=== PATIENT | male | born 1975 | race Caucasian/White ===

== ENCOUNTER 2017-04-29 18:35 | Inpatient (IN) | payer OTHER ==
[~2017-04-29] VITALS: Ht 190.5 cm; Wt 69.6 kg
[~2017-04-29 18:35] MED LIST: DIPH1TAB36 PO
[2017-04-29 18:49] VITALS: BP 167/97; PULSE 81; RESP 16; TEMP 98.3; O2SAT 100
[2017-04-29] MEDS ORDERED: SODIUM CHLOR 0.9% 1000 ML INJ 1,000 ML IV SCH (19:36)
[2017-04-29] MEDS ORDERED: [UNRECOGNIZED DRUG - CODE] PO (19:38)
--- NOTE | 2017-04-29 19:40 | PD ---
HPI Chief Complaint: Complaint Time Seen by Provider: 19:31 Travel History International Travel<30 days: No Contact w/Intl Traveler<30days: No Traveled to known affect area: No History of Present Illness HPI Patient is a 42-year-old male, who had kidney stones 15 years ago, who comes in complaining of right-sided pain. He says he started having some pain last night , but it got worse today. He also had 2 episodes of hematuria today. He says the pain has gotten so bad that he feels like he needs to vomit. He has not had fever or chills. He has not taken anything at home for the pain. PFSH Past Medical History Anxiety: Yes Depression: Yes Diminished Hearing: No Diverticulitis: Yes Gastrointestinal Disorders: Yes (COLITIS) Musculoskeletal: Yes (BACK PROBS,KNEE PROBS- HX OF RIGHT FEMUR FRACTURE) Immunizations Current: No Social History Alcohol Use: Yes (TEQUILA- 4 SHOTS A WEEK) Tobacco Use: Yes (E CIGS,) Substance Use: No Allergies-Medications (Allergen,Severity, Reaction): Coded Allergies: Penicillin (Verified Allergy, Mild, 04/29/17) Reported Meds & Prescriptions Reported Meds & Active Scripts Active Reported Pain Reliever Pm 500-25 mg (Diphenhydramine-Acetaminophen) 1 Tab Tab 2 Tab PO HS Review of Systems Except as stated in HPI: all other systems reviewed are Neg General / Constitutional: No: Fever, Chills HENT: No: Headaches, Lightheadedness Cardiovascular: No: Chest Pain or Discomfort Respiratory: No: Shortness of Breath Gastrointestinal: Positive: Nausea, Abdominal Pain, No: Vomiting Genitourinary: Positive: Hematuria, Flank Pain Skin: No Rash, No Change in Pigmentation Neurologic: No: Weakness, Dizziness Physical Exam Narrative GENERAL: Awake and alert, in no acute distress. SKIN: Focused skin assessment warm/dry. HEAD: Atraumatic. Normocephalic. EYES: Pupils equal and round. No scleral icterus. ENT: Mucous membranes pink and moist. NECK: Trachea midline. No JVD. CARDIOVASCULAR: Regular rate and rhythm. No murmur appreciated. RESPIRATORY: No accessory muscle use. Clear to auscultation. Breath sounds equal bilaterally. GASTROINTESTINAL: Abdomen soft, nondistended. Right CVA tenderness. Tender to palpation of the right upper quadrant. No rebound or guarding. MUSCULOSKELETAL: No obvious deformities. No clubbing. No cyanosis. No edema. NEUROLOGICAL: Awake and alert. No obvious cranial nerve deficits. Motor grossly within normal limits. Normal speech. PSYCHIATRIC: Appropriate mood and affect; insight and judgment normal. Data Data Last Documented VS Vital Signs Date Time Temp Pulse Resp B/P Pulse Ox O2 Delivery O2 Flow Rate FiO2 04/29/17 21:13 18 04/29/17 18:49 98.3 81 167/97 100 Orders Complete Blood Count With Diff (04/29/17 19:36) Comprehensive Metabolic Panel (04/29/17 19:36) Prothrombin Time / Inr (Pt) (04/29/17 19:36) Act Partial Throm Time (Ptt) (04/29/17 19:36) Urinalysis - C+S If Indicated (04/29/17 19:36) Ua Includes Microscopic (04/29/17 19:36) Ct Abd/Pel W/O Iv Contrast (04/29/17 19:36) Iv Access Insert/Monitor (04/29/17 19:36) Ecg Monitoring (04/29/17 19:36) Oximetry (04/29/17 19:36) Morphine Inj (Morphine Inj) (04/29/17 19:45) Ondansetron Inj (Zofran Inj) (04/29/17 19:45) Sodium Chlor 0.9% 1000 Ml Inj (Ns 1000 M (04/29/17 19:36) Sodium Chloride 0.9% Flush (Ns Flush) (04/29/17 19:45) Ketorolac Inj (Toradol Inj) (04/29/17 19:45) Ondansetron Inj (Zofran Inj) (04/29/17 21:00) Hydromorphone Pf Inj (Dilaudid Pf Inj) (04/29/17 21:30) Npo After Midnight W/ Po Meds (04/30/17 Breakfast) Consent (04/29/17 21:20) Cytology Request For Service (04/29/17 21:24) Labs Laboratory Tests Test 04/29/17 19:45 White Blood Count 7.3 TH/MM3 Red Blood Count 4.76 MIL/MM3 Hemoglobin 14.9 GM/DL Hematocrit 43.7 % Mean Corpuscular Volume 91.7 FL Mean Corpuscular Hemoglobin 31.3 PG Mean Corpuscular Hemoglobin 34.1 % Concent Red Cell Distribution Width 11.8 % Platelet Count 174 TH/MM3 Mean Platelet Volume 7.8 FL Neutrophils (%) (Auto) 68.2 % Lymphocytes (%) (Auto) 23.8 % Monocytes (%) (Auto) 5.8 % Eosinophils (%) (Auto) 0.9 % Basophils (%) (Auto) 1.3 % Neutrophils # (Auto) 5.0 TH/MM3 Lymphocytes # (Auto) 1.7 TH/MM3 Monocytes # (Auto) 0.4 TH/MM3 Eosinophils # (Auto) 0.1 TH/MM3 Basophils # (Auto) 0.1 TH/MM3 CBC Comment DIFF FINAL Differential Comment Prothrombin Time 11.6 SEC Prothromb Time International 1.0 RATIO Ratio Activated Partial 26.1 SEC Thromboplast Time Sodium Level 143 MEQ/L Potassium Level 3.4 MEQ/L Chloride Level 107 MEQ/L Carbon Dioxide Level 28.8 MEQ/L Anion Gap 7 MEQ/L Blood Urea Nitrogen 21 MG/DL Creatinine 0.83 MG/DL Estimat Glomerular Filtration 103 ML/MIN Rate Random Glucose 77 MG/DL Calcium Level 9.0 MG/DL Total Bilirubin 0.4 MG/DL Aspartate Amino Transf 23 U/L (AST/SGOT) Alanine Aminotransferase 32 U/L (ALT/SGPT) Alkaline Phosphatase 50 U/L Total Protein 7.0 GM/DL Albumin 4.3 GM/DL [facility] Medical Decision Making Medical Screen Exam Complete: Yes Emergency Medical Condition: Yes Medical Record Reviewed: Yes Differential Diagnosis UTI versus renal stone versus pyelonephritis versus cholecystitis Narrative Course Patient is a 42-year-old male comes in complaining of right flank pain and hematuria. Exam shows right CVA tenderness and right upper quadrant pain. IV established, labs sent. Patient given IV fluids, Toradol, morphine, Zofran. CT shows a 1.8 cm obstructing area in the right ureter. It is unclear if this is a stone vs clot. I spoke with Dr. Torrez of urology who would like to place a ureteral stent tomorrow, requests patient be NPO after midnight. Patient continues to vomit and have pain. Given Dilaudid and additional Zofran. He will be admitted to medicine. Diagnosis Primary Impression: Obstructive uropathy Additional Impression: Nausea & vomiting Qualified Code: R11.2 - Non-intractable vomiting with nausea, unspecified vomiting type Admitting Information Admitting Physician Requests: Admit Loraine Woods MD Apr 29, 2017 19:39
[2017-04-29] MEDS ORDERED: ONDANSETRON HCL 4 MG/2 ML VIAL IVP ONE (19:45)
[2017-04-29] MEDS ORDERED: KETOROLAC TROMETHAMINE 30 MG/ML (IVP) VIAL IVP ONE (19:45)
[2017-04-29] MEDS ORDERED: SODIUM CHLORIDE 0.9% FLUSH 10 ML FLUSH IV FLUSH PRN ×2 (19:45→22:15)
[2017-04-29] MEDS ORDERED: MORPHINE SULFATE 4 MG/ML INJ IV PUSH ONE (19:45)
[2017-04-29 19:56] LABS: BASOPHIL # 0.1 TH/MM3 (0-0.2); BASOPHIL % 1.3 % (0.0-2.0); EOSINOPHIL # 0.1 TH/MM3 (0-0.4); EOSINOPHIL % 0.9 % (0.0-4.0); HEMATOCRIT 43.7 % (39.0-51.0); HEMO FLAGS DIFF FINAL; LYMPH % 23.8 % (9.0-44.0); LYMPHOCYTE # 1.7 TH/MM3 (1.0-4.8); MEAN CELL VOLUME 91.7 FL (80.0-100.0); MEAN CORPUSCULAR HEMOGLOBIN 31.3 PG (27.0-34.0); MEAN CORPUSCULAR HGB CONC 34.1 % (32.0-36.0); MONO % 5.8 % (0.0-8.0); NEUT % 68.2 % (16.0-70.0); PLATELET COUNT 174 TH/MM3 (150-450); RED BLOOD COUNT 4.76 MIL/MM3 (4.50-5.90); RED CELL DISTRIBUTION WIDTH 11.8 % (11.6-17.2); WHITE BLOOD COUNT 7.3 TH/MM3 (4.0-11.0)
[2017-04-29 20:05] VITALS: BP 184/106; PULSE 60; RESP 18; O2SAT 99
[2017-04-29 20:05] LABS: CHLORIDE 107 MEQ/L (98-107); POTASSIUM 3.4 MEQ/L (3.5-5.1); SODIUM (NA) 143 MEQ/L (136-145)
[2017-04-29 20:09] LABS: ANION GAP 7 MEQ/L (5-15); BICARBONATE 28.8 MEQ/L (21.0-32.0); BLOOD UREA NITROGEN 21 MG/DL (7-18)
[2017-04-29 20:11] LABS: APTT (PATIENT) 26.1 SEC (24.3-30.1); PROTHROMBIN TIME - PATIENT 11.6 SEC (9.8-11.6)
[2017-04-29 20:12] LABS: ALT (GPT) 32 U/L (12-78); AST (GOT) 23 U/L (15-37); GLOMERULAR FILTRATION RATE 103 ML/MIN (>89)
[2017-04-29 20:14] LABS: TOTAL BILIRUBIN ADULT 0.4 MG/DL (0.2-1.0)
[2017-04-29 20:15] LABS: ALKALINE PHOSPHATASE 50 U/L (45-117)
[2017-04-29] MEDS ORDERED: ONDANSETRON HCL 4 MG/2 ML VIAL IV PUSH ONE (21:00)
--- NOTE | 2017-04-29 21:02 | RADRPT ---
EXAM DATE/TIME: 04/29/2017 20:16 [place] COMPARISON: CT ABDOMEN & PELVIS W CONTRAST, April 04, 2016, 19:39. INDICATIONS : Right flank pain for 1 week. ORAL CONTRAST: No oral contrast ingested. RADIATION DOSE: 9.51 CTDIvol (mGy) MEDICAL HISTORY : Diverticulitis. colitis, renal calculi SURGICAL HISTORY : None. ENCOUNTER: Initial ACUITY: 1 week PAIN SCALE: 10/10 LOCATION: Right flank TECHNIQUE: Volumetric scanning of the abdomen and pelvis was performed. Using automated exposure control and ad justment of the mA and/or kV according to patient size, radiation dose was kept as low as reasonably achievable to obtain optimal diagnostic quality images. DICOM format image data is available electro nically for review and comparison. FINDINGS: LOWER LUNGS: The visualized lower lungs are clear. LIVER: Homogeneous density without lesion for noncontrast technique. There is no dilation of the biliary tr ee. No calcified gallstones. SPLEEN: Normal size without lesion. PANCREAS: Within normal limits. KIDNEYS: On the right side, there is mild dilation of the collecting system extrarenal pelvis. There is a 4 m m nonobstructing stone in the upper pole. In the region of the extrarenal pelvis and proximal ureter , there is a amorphous area of hyperdensity which appears to be partially calcified and courses into the proximal ureter and probably causes obstruction present measures up to 1.8 cm in dimension. Mean CT density is approximately 80 Hounsfield units. No calcifications along the distal right ureter. On the left side, no hydronephrosis or calcified stones. ADRENAL GLANDS: Within normal limits. VASCULAR: There is no aortic aneurysm. Some arteriosclerotic calcification in the mid abdominal aorta. BOWEL/MESENTERY: No dilated loops of small or large bowel. ABDOMINAL WALL: Within normal limits. RETROPERITONEUM: There is no lymphadenopathy. BLADDER: No wall thickening or mass. REPRODUCTIVE: Within normal limits. INGUINAL: There is no lymphadenopathy or hernia. MUSCULOSKELETAL: Within normal limits for patient age. CONCLUSION: 1. There is mild right-sided hydronephrosis and a elongated hyperdense, possibly faintly calcified, a bnormality at the extrarenal pelvis extending into the proximal ureter, measuring up to 1.8 cm in dim ension, and causing the obstruction. This could represent a faintly calcified elongated stone or blo od products. Recommend followup CTs to resolution. 2. There is also a nonobstructing calcified 4 mm stone upper pole right kidney. Shan Reed MD on April 29, 2017 at 20:49 Board Certified Radiologist. This report was verified electronically.
[2017-04-29] MEDS ORDERED: HYDROmorphone HCL PF 1 MG/ML VIAL IV PUSH ONE (21:30)
[2017-04-29 21:40] VITALS: BP 161/95; PULSE 72; RESP 16; O2SAT 99
[2017-04-29 22:07] LABS: BLOOD, URINE LARGE (NEG); GLUCOSE,URINE NEG (NEG); KETONE, URINE 40 mg/dL (NEG); NITRITE,URINE NEG (NEG); PH, URINE 6.5 (5.0-8.5)
[2017-04-29] MEDS ORDERED: NALOXONE HCL 0.4 MG/ML AMP IV PRN (22:15)
[2017-04-29 22:30] LABS: MUCUS URINE MANY /lpf (OCC); URINE COLOR BROWN (YELLW/STRAW)
[2017-04-29 22:31] LABS: COMMENT (UR) CULTURE INDICATED; CULTURE IF INDICATED CULTURE INDICATED; RBC, URINE INNUM /hpf (0-3); SQUAMOUS EPITHELIAL CELL URINE 0-5 /hpf (0-5)
[2017-04-29] MEDS: SODIUM CHLOR 0.9% 1000 ML INJ 1,000 ML IV SCH (22:45)
[2017-04-29] MEDS: CIPROFLOXACIN 400 MG PREMIX 200 ML IV SCH (22:46)
[2017-04-29] MEDS: ONDANSETRON HCL 4 MG/2 ML VIAL IVP PRN (23:21)
[2017-04-29] MEDS: HYDROmorphone HCL PF 1 MG/ML VIAL IV PUSH PRN (23:27)
[2017-04-30] VITALS (7 sets, daily range): BP systolic 148–156; BP diastolic 89–100; PULSE 56–71; RESP 16–20; TEMP 96.1–97.6; O2SAT 98–100
[2017-04-30] MEDS: POTASSIUM CHLOR 20 MEQ PREMIX 100 ML IV SCH ×2 (00:23→03:17)
[2017-04-30] MEDS: HYDROmorphone HCL PF 1 MG/ML VIAL IV PUSH PRN ×5 (02:20→22:03)
[2017-04-30] MEDS: ONDANSETRON HCL 4 MG/2 ML VIAL IVP PRN ×2 (06:17→09:19)
[2017-04-30 08:35] LABS: AUTOMATED NEUTROPHIL # 8.5 TH/MM3 (1.8-7.7); BASOPHIL % 0.2 % (0.0-2.0); EOSINOPHIL # 0.1 TH/MM3 (0-0.4); EOSINOPHIL % 0.7 % (0.0-4.0); HEMO FLAGS DIFF FINAL; LYMPH % 8.4 % (9.0-44.0); LYMPHOCYTE # 0.9 TH/MM3 (1.0-4.8); MEAN CELL VOLUME 91.4 FL (80.0-100.0); MEAN CORPUSCULAR HEMOGLOBIN 31.2 PG (27.0-34.0); MEAN CORPUSCULAR HGB CONC 34.1 % (32.0-36.0); NEUT % 84.7 % (16.0-70.0); PLATELET COUNT 147 TH/MM3 (150-450); RED BLOOD COUNT 4.49 MIL/MM3 (4.50-5.90); RED CELL DISTRIBUTION WIDTH 11.7 % (11.6-17.2); WHITE BLOOD COUNT 10.1 TH/MM3 (4.0-11.0)
[2017-04-30] MEDS ORDERED: HYDROmorphone HCL PF 1 MG/ML VIAL IV PUSH ONE (09:15)
[2017-04-30] MEDS: CIPROFLOXACIN 400 MG PREMIX 200 ML IV SCH ×2 (09:19→22:57)
[2017-04-30] MEDS: SODIUM CHLOR 0.9% 1000 ML INJ 1,000 ML IV SCH ×2 (09:25→18:11)
--- NOTE | 2017-04-30 09:42 | HHI.HP ---
HPI Service [facility] Primary Care Physician No Primary Care Physician Admission Diagnosis obstructive uropathy Diagnoses: Chief Complaint: Pain Travel History International Travel<30 Days: No Contact w/Intl Traveler <30 Da: No Traveled to Known Affected Are: No History of Present Illness The patient is a 42-year-old male with past medical history of kidney stones who is presenting to the hospital with severe right-sided flank pain. The patient said that yesterday he passed blood clots in his urine. He had some discomfort and soreness throughout the day and at work he had some bouts of severe pain at the right flank. He said the bouts of pain would come and go so he was able to stay at work for all 10 hours. His pain level would go to a 10/ 10 in severity at its worst. He continued to notice blood in his urine. He said the pain got so bad that he has been vomiting because of it. He says he last had an episode of kidney stones when he was in his 20s. He has had a few bouts of kidney stones in his life. Review of Systems Except as stated in HPI: all other systems reviewed are Neg Past Family Social History Past Medical History Nephrolithiasis Past Surgical History Right femur fracture Artificial disc in neck Allergies: Coded Allergies: Penicillin (Verified Allergy, Mild, 04/29/17) Active Ordered Medications Current Medications Medications (Trade) Dose Ordered Sig/Wolfgang Route Start Time Stop Time Status Last Admin (NS 1000 ml Inj) 1,000 ml @ 100 mls/hr Q10H IV 04/29/17 22:11 04/30/17 09:25 (NS Flush) 2 ml UNSCH PRN IV FLUSH 04/29/17 22:15 (NS Flush) 2 ml BID IV FLUSH 04/30/17 09:00 (Zofran Inj) 4 mg Q6H PRN IVP 04/29/17 22:15 04/30/17 09:19 Naloxone HCl 0.4 mg 0.4 mg UNSCH PRN IV 04/29/17 22:15 (Cipro 400 Mg Premix) 200 ml @ 200 mls/hr Q12H IV 04/29/17 22:00 04/30/17 09:19 (Roxicodone) 5 mg Q4H PRN PO 04/30/17 09:15 (Roxicodone) 10 mg Q4H PRN PO 04/30/17 09:15 (Dilaudid Pf Inj) 1 mg Q4H PRN IV PUSH 04/30/17 09:15 (Zofran Inj) 4 mg ONCE ONCE IV PUSH 04/30/17 09:45 04/30/17 09:46 Non-Formulary Medication 2 tab HS PO 04/30/17 21:00 UNV Family History Sister with kidney stones Lung cancer Colon cancer Social History The pt vapes. He does not drink or use illicit substances. Physical Exam Vital Signs Vital Signs Date Time Temp Pulse Resp B/P Pulse Ox O2 Delivery O2 Flow Rate FiO2 04/30/17 08:00 96.9 65 20 149/91 98 04/30/17 04:00 96.1 59 16 152/95 98 04/30/17 01:27 56 04/30/17 00:00 96.9 70 18 148/100 98 04/29/17 22:00 16 04/29/17 21:40 72 16 161/95 99 Room Air 04/29/17 21:13 18 04/29/17 20:20 18 04/29/17 20:05 18 99 Room Air 04/29/17 20:05 60 18 184/106 99 Room Air 04/29/17 19:45 60 18 04/29/17 18:49 98.3 81 16 167/97 100 Physical Exam GENERAL: Awake and alert, appears very uncomfortable. SKIN: Focused skin assessment warm/dry. HEAD: Atraumatic. Normocephalic. EYES: Pupils equal and round. No scleral icterus. ENT: Mucous membranes pink and moist. NECK: Trachea midline. No JVD. CARDIOVASCULAR: Regular rate and rhythm. No murmur appreciated. RESPIRATORY: No accessory muscle use. Clear to auscultation. Breath sounds equal bilaterally. GASTROINTESTINAL: Abdomen soft, nondistended. Right CVA tenderness. Tender to palpation of the right upper quadrant. No rebound or guarding. MUSCULOSKELETAL: No obvious deformities. No clubbing. No cyanosis. No edema. NEUROLOGICAL: Awake and alert. No obvious cranial nerve deficits. Motor grossly within normal limits. Normal speech. PSYCHIATRIC: Anxious. Laboratory Laboratory Tests Test 04/29/17 04/29/17 04/30/17 19:45 21:50 08:15 White Blood Count 7.3 10.1 Red Blood Count 4.76 4.49 Hemoglobin 14.9 14.0 Hematocrit 43.7 41.0 Mean Corpuscular Volume 91.7 91.4 Mean Corpuscular Hemoglobin 31.3 31.2 Mean Corpuscular Hemoglobin 34.1 34.1 Concent Red Cell Distribution Width 11.8 11.7 Platelet Count 174 147 Mean Platelet Volume 7.8 7.6 Neutrophils (%) (Auto) 68.2 84.7 Lymphocytes (%) (Auto) 23.8 8.4 Monocytes (%) (Auto) 5.8 6.0 Eosinophils (%) (Auto) 0.9 0.7 Basophils (%) (Auto) 1.3 0.2 Neutrophils # (Auto) 5.0 8.5 Lymphocytes # (Auto) 1.7 0.9 Monocytes # (Auto) 0.4 0.6 Eosinophils # (Auto) 0.1 0.1 Basophils # (Auto) 0.1 0.0 CBC Comment DIFF FINAL DIFF FINAL Differential Comment Prothrombin Time 11.6 Prothromb Time International 1.0 Ratio Activated Partial 26.1 Thromboplast Time Sodium Level 143 Potassium Level 3.4 Chloride Level 107 Carbon Dioxide Level 28.8 Anion Gap 7 Blood Urea Nitrogen 21 Creatinine 0.83 Estimat Glomerular Filtration 103 Rate Random Glucose 77 Calcium Level 9.0 Total Bilirubin 0.4 Aspartate Amino Transf 23 (AST/SGOT) Alanine Aminotransferase 32 (ALT/SGPT) Alkaline Phosphatase 50 Total Protein 7.0 Albumin 4.3 Urine Color BROWN Urine Turbidity CLOUDY Urine pH 6.5 Urine Specific [place] 1.025 Urine Protein 100 Urine Glucose (UA) NEG Urine Ketones 40 Urine Occult Blood LARGE Urine Nitrite NEG Urine Bilirubin NEG Urine Leukocyte Esterase NEG Urine RBC INNUM Urine WBC 20-24 Urine Squamous Epithelial 0-5 Cells Urine Mucus MANY Microscopic Urinalysis Comment CULTURE INDICATED Date/Time Procedure Status Source Growth 04/29/17 21:50 Urine Culture Received Urine Clean Catch Pending Result Diagram: 04/30/1715 04/29/171944 Imaging Last Impressions Abdomen/Pelvis CT 04/29/171935 Signed Impressions: Service Date/Time: Saturday, April 29, 2017 20:16 - CONCLUSION: 1. There is mild right-sided hydronephrosis and a elongated hyperdense, possibly faintly calcified, abnormality at the extrarenal pelvis extending into the proximal ureter, measuring up to 1.8 cm in dimension, and causing the obstruction. This could represent a faintly calcified elongated stone or blood products. Recommend followup CTs to resolution. 2. There is also a nonobstructing calcified 4 mm stone upper pole right kidney. Shan Reed MD Assessment and Plan Assessment and Plan Obstructive uropathy The pt passed blood clots and had severe right sided flank pain. CT showed: mild right-sided hydronephrosis and a elongated hyperdense, possibly faintly calcified, abnormality at the extrarenal pelvis extending into the proximal ureter, measuring up to 1.8 cm in dimension, and causing the obstruction; There is also a nonobstructing calcified 4 mm stone upper pole right kidney. - IV pain control. - IV antiemetics. - follow up with urology. - IVFs. UTI S/t above. - continue IV Cipro. - follow urine culture. Thrombocytopenia Platelet count is mildly decreased. - continue to monitor. PPx: Ambulation Discussed Condition With Pt, nurse, pt's family Physician Certification 2 Midnight Certification Type: Admission for Inpatient Services Order for Inpatient Services The services are ordered in accordance with Medicare regulations or non- Medicare payer requirements, as applicable. In the case of services not specified as inpatient-only, they are appropriately provided as inpatient services in accordance with the 2-midnight benchmark. Estimated LOS (days): 2 days is the estimated time the patient will need to remain in the hospital, assuming treatment plan goals are met and no additional complications. Post-Hospital Plan: Home Logan Johnson DO Apr 30, 2017 09:41
[2017-04-30] MEDS ORDERED: ONDANSETRON HCL 4 MG/2 ML VIAL IV PUSH ONE ×2 (09:45→10:10)
[2017-04-30 09:53] LABS: BICARBONATE 26.8 MEQ/L (21.0-32.0); POTASSIUM 4.3 MEQ/L (3.5-5.1)
[2017-04-30] MEDS ORDERED: PROPOFOL 200 MG/20 ML AMP IV ONE (10:10)
[2017-04-30] MEDS ORDERED: IOHEXOL 300 MG/ML 50 ML BTL (for RAD DIAG) ONE (10:10)
[2017-04-30] MEDS ORDERED: METOCLOPRAMIDE HCL 10 MG/2 ML VIAL ONE (12:08)
[2017-04-30] MEDS ORDERED: MIDAZOLAM HCL 2 MG/2 ML VIAL ONE (12:08)
[2017-04-30] MEDS ORDERED: FAMOTIDINE 20 MG/2 ML VIAL ONE (12:08)
[2017-04-30] MEDS ORDERED: fentaNYL CITRATE 250 MCG/5 ML AMP ONE (14:33)
[2017-04-30] MEDS: BELLADONNA ALKALOIDS/OPIUM 60 MG SUPP RECTAL PRN (14:40)
[2017-04-30] MEDS ORDERED: *HYDROmorphone PF 1 MG VIAL PERIprocedural Use ONLY ONE (15:33)
[2017-04-30] MEDS: AMINOCAPROIC ACID INJ 3,000 MG in SODIUM CHLORIDE 0.9% IRR BAG 3,000 ML IRRIGATION SCH (16:03)
--- NOTE | 2017-04-30 16:56 | MB ---
cc: DEB QUEEN DATE OF CONSULTATION 04/30/2017 HISTORY Mr. Saavedra is a 42-year-old male presented with a history of right-sided flank pain and gross hematuria. He noted some clots yesterday while passing his urine. He notes a history of hematuria in the past and also has a history of kidney stones. He presently denies any nausea, vomiting, fever or chills. He does have a long history of smoking in the past. PAST MEDICAL HISTORY His medical history is noted for: A history of kidney stones and gross hematuria. PAST SURGICAL HISTORY Notable for: 1. Right femur fracture. 2. And artificial disk placed in his neck. ALLERGIES PENICILLIN. FAMILY HISTORY Noted for kidney stones, lung cancer, colon cancer. SOCIAL HISTORY Presently the patient does smoke currently on vapor cigarettes but a prior long history of smoking is noted. He denies drinking or using drugs. REVIEW OF SYSTEMS He notes right flank pain and gross hematuria. He denies any chest pain, shortness of breath, headaches, gait disturbances, any voiding complaints other than hematuria. Denies diarrhea, constipation. Denies skin lesions, gait disturbances, denies bleeding disorders. Denies psychiatric problems. The remaining review of systems were reviewed and are negative. PHYSICAL EXAMINATION VITAL SIGNS: His present vitals today temperature is 96.9, heart rate 65, respiratory rate 20, 149/91 is his blood pressure. 98% on room air. GENERAL: He will well-developed, well-nourished 42-year-old male in no acute distress. HEENT: Normocephalic, atraumatic. Pupils equal, round, reactive to light. Extraocular movements intact. NECK: Supple. HEART: Regular rate and rhythm. LUNGS: Clear. ABDOMEN: Soft. Nontender. Nondistended. GENITOURINARY: Normal phallus. Testes are descended. EXTREMITIES: Show no clubbing, cyanosis or edema. LABORATORY DATA White count is 10.1, hemoglobin is 14.0, hematocrit is 41.0, platelet count is 147. Sodium 144, potassium 4.3, chloride 111, CO2 26.8, BUN of 21, creatinine 0.96, glucose of 91. Coags, PT is 11.6, INR is 1.0, PTT is 26.1. Urinalysis shows large blood, white cells are 20-24, nitrate is negative. IMAGING imaging study suggested mild right-sided hydronephrosis and elongated hyperdense fairly calcified abnormality at the extrarenal pelvis extending into the proximal ureter measuring up to 1.8 cm. This could be representing of old clot or a possible tumor. ASSESSMENT A 42-year-old male with findings of right flank pain and gross hematuria with a possible mass in the ureter of clot versus stone. We will recommend cystoscopy, right retrograde study with right double-J stent insertion to clear the obstruction and to relieve his pain. Risks and benefits were discussed of the procedure and he is willing to proceed. Deb GROSSMAN/MARIBETH /2:05 PM /4:38 PM
[2017-04-30] MEDS: ACETAMINOPHEN 500 MG CPLT PO SCH (20:15)
[2017-04-30] MEDS: diphenhydrAMINE HCL 50 MG CAP PO SCH (20:15)
[2017-04-30] MEDS: SODIUM CHLORIDE 0.9% FLUSH 10 ML FLUSH IV FLUSH SCH (20:16)
[2017-04-30 20:56] LABS: HEMATOCRIT 39.2 % (39.0-51.0); MEAN CELL VOLUME 92.7 FL (80.0-100.0); MEAN CORPUSCULAR HEMOGLOBIN 31.3 PG (27.0-34.0); MEAN CORPUSCULAR HGB CONC 33.8 % (32.0-36.0); PLATELET COUNT 138 TH/MM3 (150-450); RED BLOOD COUNT 4.23 MIL/MM3 (4.50-5.90); RED CELL DISTRIBUTION WIDTH 11.8 % (11.6-17.2); REVIEW FLAG FINAL; WHITE BLOOD COUNT 10.1 TH/MM3 (4.0-11.0)
--- NOTE | 2017-04-30 20:56 | MP ---
cc: DEB TORREZ DATE OF SURGERY: 04/30/2017 PREOPERATIVE DIAGNOSIS: Right hydronephrosis with gross hematuria and right flank pain. POSTOPERATIVE DIAGNOSIS Right hydronephrosis with gross hematuria and right flank pain. PROCEDURE: 1. Urethral dilatation. 2. Cystoscopy. 3. Right retrograde study. 4. Right double-J stent insertion. SURGEON Regine Torrez MD. ANESTHESIA: General, LMA. FLUIDS: One liter Crystalloid. BLOOD LOSS: None. COMPLICATIONS: None. FINDINGS: Filling defects within the collecting system of the right kidney at the UPJ area. Blood was noted per the right ureteral orifice. DRAINS: 26 cm, 6 Sami right double-J stent. 24, three day Covarrubias catheter. DISPOSITION: The patient tolerated the procedure well, was extubated, transferred to the Recovery Room in stable condition. INDICATIONS FOR PROCEDURE: Mr. John Saavedra is a 42 year-old male who presented with right-sided flank pain and gross hematuria. CT scan demonstrated right hydronephrosis with possible stone versus clot, versus mass in the right UPJ region. Decision was made to bring the patient to the operating room to undergo cystoscopy, right retrograde, right double-J stent insertion. DESCRIPTION OF PROCEDURE: The patient was brought to the operating room identified by myself as John Saavedra. He was placed in the dorsolithotomy position, prepped and draped in the usual sterile fashion. He received preprocedure antibiotics, and general LMA anesthesia was administered. Initially I was unable to pass the cystoscope through the urethral meatus and therefore urethral dilatation was performed. Starting with an 18 sound up to a 24-Sami sound, the urethral meatus was dilated. I was then easily able to pass the cystoscope into the bladder. Pancystoscopy did not show any abnormality, however, there was blood noted from the right ureteral orifice. A 5 Sami open ended catheter was inserted into the right ureteral orifice and retrograde study was performed on the right side. There was a questionable filling defects at the area of the EPJ region. Decision was made then to pass a wire. A 0.35 sensor wire was passed through the open-ended catheter and left with a good curl in the kidney. The open-ended catheter was removed and a 6-Sami 26 cm right double-J stent was placed in good position in the right kidney. The bladder was evacuated and he was noted to have blood coming from the stent on the right side. Decision then made to leave a three-way 20-Sami Covarrubias catheter and start him on gentle [place] CBI. He will be transferred to the [facility] and undergo a CT scan in the a.m. to evaluate for any filling defects in that right kidney and determine if there is any other abnormality causing his bleeding. He tolerated the procedure well and was transferred to the Recovery Room in stable condition. Deb GROSSMAN/ALEXIS /2:09 PM /8:12 PM
[2017-04-30] MEDS ORDERED: DIPHENHYDRAMINE ACETAMINOPHEN PO SCH (21:00)
[2017-05-01] VITALS (10 sets, daily range): BP systolic 120–150; BP diastolic 76–94; PULSE 56–70; RESP 17–20; TEMP 96.1–98.1; O2SAT 94–100
[2017-05-01] MEDS: HYDROmorphone HCL PF 1 MG/ML VIAL IV PUSH PRN ×6 (01:42→21:53)
[2017-05-01] MEDS: BELLADONNA ALKALOIDS/OPIUM 60 MG SUPP RECTAL PRN (01:54)
[2017-05-01 08:02] LABS: HEMATOCRIT 38.9 % (39.0-51.0); MEAN CELL VOLUME 91.7 FL (80.0-100.0); MEAN CORPUSCULAR HEMOGLOBIN 31.9 PG (27.0-34.0); MEAN CORPUSCULAR HGB CONC 34.8 % (32.0-36.0); PLATELET COUNT 127 TH/MM3 (150-450); RED BLOOD COUNT 4.24 MIL/MM3 (4.50-5.90); RED CELL DISTRIBUTION WIDTH 12.7 % (11.6-17.2); REVIEW FLAG FINAL; WHITE BLOOD COUNT 8.2 TH/MM3 (4.0-11.0)
[2017-05-01 08:17] LABS: BICARBONATE 29.4 MEQ/L (21.0-32.0); MAGNESIUM 1.9 MG/DL (1.5-2.5)
[2017-05-01] MEDS: SODIUM CHLORIDE 0.9% FLUSH 10 ML FLUSH IV FLUSH SCH ×2 (09:00→21:00)
[2017-05-01] MEDS: SODIUM CHLOR 0.9% 1000 ML INJ 1,000 ML IV SCH ×2 (09:59→14:11)
[2017-05-01] MEDS: CIPROFLOXACIN 400 MG PREMIX 200 ML IV SCH ×2 (10:00→21:01)
--- NOTE | 2017-05-01 10:44 | HHI.PR ---
Subjective Remarks f/u flank pain he is still in a lot of pain, right flank radiating to the right suprapubic area. No nausea or vomiting. Still with hematuria. No fever or chills. Urine culture negative to date. Objective Vitals Vital Signs Date Time Temp Pulse Resp B/P Pulse Ox O2 Delivery O2 Flow Rate FiO2 05/01/17 07:50 96.7 60 20 120/77 98 05/01/17 04:00 61 05/01/17 04:00 96.7 60 17 138/94 98 05/01/17 00:00 98.1 66 17 125/76 98 05/01/17 00:00 56 04/30/17 23:11 71 04/30/17 20:00 97.6 70 20 152/89 100 04/30/17 16:00 97.1 65 18 156/93 100 04/30/17 16:00 16 04/30/17 15:25 98.2 62 16 152/84 100 04/30/17 15:10 60 16 156/88 100 04/30/17 14:55 59 16 155/96 100 04/30/17 14:40 58 16 142/74 100 04/30/17 14:26 98.1 55 14 133/73 100 Nasal Cannula 3 04/30/17 11:59 96.9 65 20 149/91 98 I/O 04/30/17 04/30/17 04/30/17 05/01/17 05/01/17 05/01/17 06:59 14:59 22:59 06:59 14:59 22:59 Intake Total 500 ml 0 ml 1163 ml Output Total 200 ml 550 ml 1050 ml Balance 300 ml -550 ml 113 ml Intake Oral 0 ml IV Total 500 ml 663 ml Other 500 ml Output Urine Total 200 ml 550 ml 1050 ml # Voids 1 # Bowel Movements 0 Result Diagram: 05/01/17 0649 05/01/17 0649 Objective Remarks Not in distress, well-nourished, looks stated age Normal rate and regular rhythm, no murmurs gallops or rubs appreciated. Clear to auscultation and symmetric bilaterally, normal respiratory effort. Normal bowel sounds, soft, mild suprapubic tenderness, Covarrubias catheter in place with hematuria curing. Extremities without clubbing, cyanosis, or edema. AAO x3, no cranial nerve deficits, moves all 4 extremities, no focal neurologic deficits A/P Assessment and Plan Obstructive uropathy secondary to mass versus kidney stone The pt passed blood clots and had severe right sided flank pain. CT showed: mild right-sided hydronephrosis and a elongated hyperdense, possibly faintly calcified, abnormality at the extrarenal pelvis extending into the proximal ureter, measuring up to 1.8 cm in dimension, and causing the obstruction; There is also a nonobstructing calcified 4 mm stone upper pole right kidney. Status post cystoscopy with J stent placement on the right, for repeat CT scan today. Continue pain control with intravenous and oral narcotics, continue antiemetics. No fever. UTI S/t above. - continue IV Cipro. Urine culture negative, discontinue antibiotics once Covarrubias catheter is out. Thrombocytopenia Platelet count is mildly decreased. Trending down, recheck CBC tomorrow. Not in any blood thinners. PPx: Ambulation DVT prophylaxis: Low risk Discharge Planning Discharge home once cleared by urology Brodie Barnes MD May 01, 2017 10:44
--- NOTE | 2017-05-01 11:00 | HHI.PR ---
Subjective Patient symptoms today Pt seen and examined. Still having gross hematuria on Amicar CBI s/p cysto with right JJ stent insertion CT scan for today pending. Objective Vital Signs Vital Signs Date Time Temp Pulse Resp B/P Pulse Ox O2 Delivery O2 Flow Rate FiO2 05/01/17 07:50 96.7 60 20 120/77 98 05/01/17 04:00 61 05/01/17 04:00 96.7 60 17 138/94 98 05/01/17 00:00 98.1 66 17 125/76 98 05/01/17 00:00 56 04/30/17 23:11 71 04/30/17 20:00 97.6 70 20 152/89 100 04/30/17 16:00 97.1 65 18 156/93 100 04/30/17 16:00 16 04/30/17 15:25 98.2 62 16 152/84 100 04/30/17 15:10 60 16 156/88 100 04/30/17 14:55 59 16 155/96 100 04/30/17 14:40 58 16 142/74 100 04/30/17 14:26 98.1 55 14 133/73 100 Nasal Cannula 3 04/30/17 11:59 96.9 65 20 149/91 98 Intake & Output 05/01/17 05/01/17 07:00 19:00 Intake Total 663 ml Balance 663 ml IV Total 663 ml Result Diagram: 05/01/17 0649 05/01/17 0649 Objective Remarks Abd:soft,nd, some right sided tenderness; Right CVAT Covarrubias with gross hematuria Medications and IVs Current Medications Medications (Trade) Dose Ordered Sig/Wolfgang Route Start Time Stop Time Status Last Admin (NS 1000 ml Inj) 1,000 ml @ 100 mls/hr Q10H IV 04/29/17 22:11 05/01/17 09:59 (NS Flush) 2 ml UNSCH PRN IV FLUSH 04/29/17 22:15 (NS Flush) 2 ml BID IV FLUSH 04/30/17 09:00 (Zofran Inj) 4 mg Q6H PRN IVP 04/29/17 22:15 04/30/17 09:19 Naloxone HCl 0.4 mg 0.4 mg UNSCH PRN IV 04/29/17 22:15 (Cipro 400 Mg Premix) 200 ml @ 200 mls/hr Q12H IV 04/29/17 22:00 05/01/17 10:00 (Roxicodone) 5 mg Q4H PRN PO 04/30/17 09:15 04/30/17 22:58 (Roxicodone) 10 mg Q4H PRN PO 04/30/17 09:15 05/01/17 06:44 (Dilaudid Pf Inj) 1 mg Q4H PRN IV PUSH 04/30/17 09:15 05/01/17 09:59 (Benadryl) 50 mg HS PO 04/30/17 21:00 04/30/17 20:15 Acetaminophen 1000 mg 1,000 mg HS PO 04/30/17 21:00 04/30/17 20:15 (Amicar Inj/NS Irr Bag) 3,012 ml @ 125.5 mls/ hr Q24H IRRIGATION 04/30/17 15:00 04/30/17 16:03 (B & O Supp) 60 mg Q6HR PRN RECTAL 04/30/17 14:15 05/01/17 01:54 Assessment and Plan Assessment and Plan 42 y.o male with acute onset of right flank pain with gross hematuria CT scan with IV contrast today; concern for malignancy vs AV malformation Continue Amicar CBI; pain control. Cem Torrez DO May 01, 2017 11:00
--- NOTE | 2017-05-01 14:00 | RADRPT ---
EXAM DATE/TIME: 04/30/2017 13:55 [facility] COMPARISON: No previous studies available for comparison. INDICATIONS : Stent placement right kidney. .65 minutes 1 CONTRAST: Instilled by Ordering Physician MEDICAL HISTORY : None. SURGICAL HISTORY : None. ENCOUNTER: Initial ACUITY: 1 day PAIN SCORE: Non-responsive. LOCATION: Right Kidney. FINDINGS: Single intraprocedural fluoroscopy image. There is a ureteral stent extending to the superior pole ca lyx. Mild prominence of the collecting system. No significant focal filling defect in the collecting system although the UPJ is not visualized. CONCLUSION: 1. Ureteral stent extending to the superior pole calyx with mild prominence of the collecting system. 2. No significant focal filling defect although the UPJ is nonvisualized. Leo Gardner MD on May 01, 2017 at 13:55 Board Certified Radiologist. This report was verified electronically.
[2017-05-01] MEDS: AMINOCAPROIC ACID INJ 3,000 MG in SODIUM CHLORIDE 0.9% IRR BAG 3,000 ML IRRIGATION SCH ×2 (15:00→21:30)
[2017-05-01] MEDS ORDERED: IOHEXOL 350 MG/ML 10 ML VIAL (for RAD DIAG) IV ONE (18:43)
--- NOTE | 2017-05-01 19:27 | RADRPT ---
EXAM DATE/TIME: 05/01/2017 18:23 [facility] COMPARISON: UROGRAM, RETROGRADE PYELO, April 30, 2017, 13:55. CT ABDOMEN & PELVIS W/O CONTRAST, April 29, 2017, 20:16. CT ABDOMEN & PELVIS W CONTRAST, April 04, 2016, 19:39. INDICATIONS : Obstructive uropathy with hematuria. IV CONTRAST: 95 cc Omnipaque 350 (iohexol) IV ORAL CONTRAST: No oral contrast ingested. RADIATION DOSE: 9.16 CTDIvol (mGy) MEDICAL HISTORY : Diverticulitis. Coloitis SURGICAL HISTORY : None. ENCOUNTER: Initial ACUITY: 3 days PAIN SCALE: 5/10 LOCATION: Bilateral abdomen TECHNIQUE: Volumetric scanning of the abdomen and pelvis was performed. Using automated exposure control and ad justment of the mA and/or kV according to patient size, radiation dose was kept as low as reasonably achievable to obtain optimal diagnostic quality images. DICOM format image data is available electro nically for review and comparison. FINDINGS: Three-phase imaging of the kidneys was performed. There is a double-J stent present on the right nura e. The proximal loop of the stent is located in the renal pelvis. The location of the distal loop i s difficult to discern a portion of the distal loop appears to be at least partially within urinary b ladder. There is a Covarrubias catheter within the urinary bladder. On the delayed phase imaging, there a re 2 filling defects seen, within the upper pole collecting system measuring up to 1.1 cm, and the ot her in the renal pelvis between the loop of the proximal stent measuring 1.8 cm. On the left side no evidence of hydronephrosis or calcified stones. There is mild bilateral lower lung atelectasis measuring up to 1 cm in thickness. No evidence of ple ural effusion. The liver, spleen, pancreas, and adrenal glands are grossly unremarkable. No calcifi ed gallstones. There is some induration of the fat in the perinephric space on the right-sided and some induration o f the retroperitoneal fat about the right colon. Some fluid tracks along the posterior margin of the posterior pararenal space on the right side. These findings are probably related to stent placement . Wide windows for bony detail demonstrate the osseous structures to be intact. No dilated loops of sm all or large bowel. Aorta and iliac vessels are normal dimension. CONCLUSION: 1. Double-J stent present on the right. Proximally, there are 2 filling defects, located upper pole collecting system and in the renal pelvis in between the proximal loop of the stent. The location of the distal stent is equivocal and cannot confirm with certainty that the distal stent is coiled with in the lumen of the urinary bladder. There are some linear filling defects seen in the lumen of the urinary bladder on the right side which is elongated 2. No dilated loops of small large bowel. Induration of the fat in the perinephric and retroperitone al region on the right side probably related to prior stent placement. Shan Reed MD on May 01, 2017 at 19:12 Board Certified Radiologist. This report was verified electronically.
[2017-05-01] MEDS: ACETAMINOPHEN 500 MG CPLT PO SCH (20:59)
[2017-05-01] MEDS: diphenhydrAMINE HCL 50 MG CAP PO SCH (20:59)
[2017-05-01] MEDS: ONDANSETRON HCL 4 MG/2 ML VIAL IVP PRN (21:52)
[2017-05-02] VITALS (11 sets, daily range): BP systolic 132–155; BP diastolic 75–91; PULSE 57–74; RESP 17–20; TEMP 96.1–97; O2SAT 97–100
[2017-05-02] MEDS: SODIUM CHLOR 0.9% 1000 ML INJ 1,000 ML IV SCH ×3 (02:57→20:11)
[2017-05-02] MEDS: HYDROmorphone HCL PF 1 MG/ML VIAL IV PUSH PRN ×6 (03:00→23:31)
[2017-05-02] MEDS: AMINOCAPROIC ACID INJ 3,000 MG in SODIUM CHLORIDE 0.9% IRR BAG 3,000 ML IRRIGATION SCH ×5 (05:15→20:56)
[2017-05-02 08:42] LABS: AUTOMATED NEUTROPHIL # 4.2 TH/MM3 (1.8-7.7); BASOPHIL % 0.2 % (0.0-2.0); EOSINOPHIL # 0.1 TH/MM3 (0-0.4); HEMATOCRIT 38.7 % (39.0-51.0); HEMO FLAGS DIFF FINAL; LYMPHOCYTE # 1.4 TH/MM3 (1.0-4.8); MEAN CELL VOLUME 92.2 FL (80.0-100.0); MEAN CORPUSCULAR HEMOGLOBIN 31.9 PG (27.0-34.0); MEAN CORPUSCULAR HGB CONC 34.7 % (32.0-36.0); MONO % 7.9 % (0.0-8.0); NEUT % 66.9 % (16.0-70.0); PLATELET COUNT 142 TH/MM3 (150-450); RED BLOOD COUNT 4.19 MIL/MM3 (4.50-5.90); RED CELL DISTRIBUTION WIDTH 12.8 % (11.6-17.2); WHITE BLOOD COUNT 6.2 TH/MM3 (4.0-11.0)
[2017-05-02] MEDS: ONDANSETRON HCL 4 MG/2 ML VIAL IVP PRN ×2 (08:48→19:33)
[2017-05-02] MEDS: SODIUM CHLORIDE 0.9% FLUSH 10 ML FLUSH IV FLUSH SCH ×2 (09:00→20:55)
[2017-05-02 09:09] LABS: BICARBONATE 31.2 MEQ/L (21.0-32.0); POTASSIUM 3.6 MEQ/L (3.5-5.1)
[2017-05-02] MEDS: CIPROFLOXACIN 400 MG PREMIX 200 ML IV SCH ×2 (09:14→20:55)
--- NOTE | 2017-05-02 10:41 | HHI.PR ---
Subjective Patient symptoms today Pt seen and examined. C/O bladder discomfort due to catheter/bladder spasms. Hgb stable at 13.4. Hematuria improving. Objective Vital Signs Vital Signs Date Time Temp Pulse Resp B/P Pulse Ox O2 Delivery O2 Flow Rate FiO2 05/02/17 07:50 96.6 59 20 133/77 98 05/02/17 04:00 96.1 66 18 147/82 97 05/02/17 04:00 57 05/02/17 00:03 68 05/02/17 00:00 96.8 74 17 135/91 98 05/01/17 20:00 96.1 66 18 150/81 94 05/01/17 19:59 67 05/01/17 16:16 65 05/01/17 15:30 97.6 70 20 148/80 98 05/01/17 12:00 65 05/01/17 11:30 97.0 64 20 130/81 100 Intake & Output 05/02/17 05/02/17 07:00 19:00 Intake Total 84034 ml 1015 ml Output Total 2600 ml Balance 36496 ml -1585 ml IV Total 2000 ml 1015 ml Other 84760 ml Output Urine Total 2600 ml Result Diagram: 05/02/17 0630 05/02/17 0630 Objective Remarks Abd:soft,nd, some right sided tenderness; Right CVAT Covarrubias with gross hematuria 05/02 Abd:soft,nt,nd Covarrubias with clear urine on Amicar CBI Medications and IVs Current Medications Medications (Trade) Dose Ordered Sig/Wolfgang Route Start Time Stop Time Status Last Admin (NS 1000 ml Inj) 1,000 ml @ 100 mls/hr Q10H IV 04/29/17 22:11 05/02/17 02:57 (NS Flush) 2 ml UNSCH PRN IV FLUSH 04/29/17 22:15 (NS Flush) 2 ml BID IV FLUSH 04/30/17 09:00 (Zofran Inj) 4 mg Q6H PRN IVP 04/29/17 22:15 05/02/17 08:48 Naloxone HCl 0.4 mg 0.4 mg UNSCH PRN IV 04/29/17 22:15 (Cipro 400 Mg Premix) 200 ml @ 200 mls/hr Q12H IV 04/29/17 22:00 05/02/17 09:14 (Benadryl) 50 mg HS PO 04/30/17 21:00 05/01/17 20:59 Acetaminophen 1000 mg 1,000 mg HS PO 04/30/17 21:00 05/01/17 20:59 (Amicar Inj/NS Irr Bag) 3,012 ml @ 125.5 mls/ hr Q24H IRRIGATION 04/30/17 15:00 05/02/17 05:15 (B & O Supp) 60 mg Q6HR PRN RECTAL 04/30/17 14:15 05/01/17 01:54 (Dilaudid Pf Inj) 2 mg Q4H PRN IV PUSH 05/01/17 17:15 05/02/17 06:49 (Roxicodone) 15 mg Q4H PRN PO 05/01/17 17:15 05/02/17 09:15 Assessment and Plan Assessment and Plan 42 y.o male with acute onset of right flank pain with gross hematuria CT scan with IV contrast today; concern for malignancy vs AV malformation Continue Amicar CBI; pain control. 05/02 42 y.o male with acute onset of right flank pain with gross hematuria CT scan with possible filling defects right upper pole Continue Amicar CBI today Possible void trial in AM if urine clear. Right URS as outpt. Cem Torrez DO May 02, 2017 10:41
--- NOTE | 2017-05-02 12:42 | HHI.PR ---
Subjective Remarks Follow-up on obstructive uropathy States that he's been able tolerate some by mouth intake, says that his pain is better controlled since the pain regimen was modified yesterday. Said he had a headache that responded to Tylenol, headache has recurred and is asking for more Tylenol Objective Vital Signs Date Time Temp Pulse Resp B/P Pulse Ox O2 Delivery O2 Flow Rate FiO2 05/02/17 07:50 96.6 59 20 133/77 98 05/02/17 04:00 96.1 66 18 147/82 97 05/02/17 04:00 57 05/02/17 00:03 68 05/02/17 00:00 96.8 74 17 135/91 98 05/01/17 20:00 96.1 66 18 150/81 94 05/01/17 19:59 67 05/01/17 16:16 65 05/01/17 15:30 97.6 70 20 148/80 98 I/O 05/01/17 05/01/17 05/01/17 05/02/17 05/02/17 05/02/17 07:00 15:00 23:00 07:00 15:00 23:00 Intake Total 120 ml 16631 ml 1015 ml Output Total 38322 ml 4550 ml 2600 ml Balance -68461 ml 9450 ml -1585 ml Intake Oral 120 ml IV Total 2000 ml 1015 ml Other 97240 ml Output Urine Total 07396 ml 4550 ml 2600 ml # Bowel Movements 0 Result Diagram: 05/02/17 0630 05/02/17 0630 Imaging Last Impressions Abdomen/Pelvis CT 05/01/17 0000 Signed Impressions: Service Date/Time: Monday, May 01, 2017 18:23 - CONCLUSION: 1. Double-J stent present on the right. Proximally, there are 2 filling defects, located upper pole collecting system and in the renal pelvis in between the proximal loop of the stent. The location of the distal stent is equivocal and cannot confirm with certainty that the distal stent is coiled with in the lumen of the urinary bladder. There are some linear filling defects seen in the lumen of the urinary bladder on the right side which is elongated 2. No dilated loops of small large bowel. Induration of the fat in the perinephric and retroperitoneal region on the right side probably related to prior stent placement. Shan Reed MD Retrograde Pyelogram 04/30/17 0000 Signed Impressions: Service Date/Time: Sunday, April 30, 2017 13:55 - CONCLUSION: 1. Ureteral stent extending to the superior pole calyx with mild prominence of the collecting system. 2. No significant focal filling defect although the UPJ is nonvisualized. Leo Gardner MD Objective Remarks GENERAL: Mild distress secondary to pain EYES: No scleral icterus. No injection or drainage. CARDIOVASCULAR: Regular rate and rhythm without murmurs, gallops, or rubs. RESPIRATORY: Breath sounds equal bilaterally. No accessory muscle use. GASTROINTESTINAL: Abdomen soft, non-tender, nondistended. Flank tenderness mild to moderate noted on right CVA : Covarrubias catheter in place with reddish urine MUSCULOSKELETAL: No cyanosis, or edema. A/P Problem List: (1) Obstructive uropathy ICD Code: N13.9 (2) Nausea & vomiting ICD Code: R11.2 Assessment and Plan Obstructive uropathy secondary to mass versus kidney stone Neurology consulted, status post right double J stent placement. Repeat CT scan is showing some filling defects, urology aware. Continue pain control with intravenous and oral narcotics, continue antiemetics. No fever. UTI S/t above. - continue IV Cipro. Urine culture negative, we'll discontinue Covarrubias catheter if patient successfully passes spontaneous voiding trial in a.m. as urology intends Thrombocytopenia Stable, monitor Problem Qualifiers (1) Nausea & vomiting: Qualified Code: R11.2 - Non-intractable vomiting with nausea, unspecified vomiting type Mateo Arias MD May 02, 2017 12:42
[2017-05-02] MEDS: ACETAMINOPHEN 325 MG TAB PO PRN (14:37)
[2017-05-02] MEDS: ACETAMINOPHEN 500 MG CPLT PO SCH (20:55)
[2017-05-02] MEDS: diphenhydrAMINE HCL 50 MG CAP PO SCH (20:55)
[2017-05-03] VITALS (8 sets, daily range): BP systolic 130–172; BP diastolic 78–100; PULSE 61–84; RESP 16–18; TEMP 97–99.5; O2SAT 99–100
[2017-05-03] MEDS: SODIUM CHLOR 0.9% 1000 ML INJ 1,000 ML IV SCH (04:00)
[2017-05-03] MEDS: AMINOCAPROIC ACID INJ 3,000 MG in SODIUM CHLORIDE 0.9% IRR BAG 3,000 ML IRRIGATION SCH (04:21)
[2017-05-03] MEDS: HYDROmorphone HCL PF 1 MG/ML VIAL IV PUSH PRN (07:27)
--- NOTE | 2017-05-03 08:53 | HHI.PR ---
Subjective Patient symptoms today Pt feels well. Minor pain. Urine clear. Covarrubias removed. Objective Vital Signs Vital Signs Date Time Temp Pulse Resp B/P Pulse Ox O2 Delivery O2 Flow Rate FiO2 05/03/17 04:04 63 05/03/17 04:00 97.1 65 17 130/78 100 05/03/17 00:03 61 05/03/17 00:00 97.5 65 17 138/89 100 05/02/17 22:02 64 05/02/17 20:00 97.0 65 17 155/84 100 05/02/17 15:52 66 05/02/17 15:00 96.4 68 20 132/75 98 05/02/17 12:52 73 05/02/17 11:30 96.4 67 20 142/75 99 Intake & Output 05/03/17 05/03/17 07:00 19:00 Output Total 950 ml Balance -950 ml Output Urine Total 950 ml Result Diagram: 05/02/1730 05/02/17629 Objective Remarks Abd:soft,nd, some right sided tenderness; Right CVAT Covarrubias with gross hematuria 05/02 Abd:soft,nt,nd Covarrubias with clear urine on Amicar CBI 05/03/17 Abd:soft,nt,nd Covarrubias with clear urine on Amicar CBI; Covarrubias removed at bedside. Medications and IVs Current Medications Medications (Trade) Dose Ordered Sig/Wolfgang Route Start Time Stop Time Status Last Admin (NS 1000 ml Inj) 1,000 ml @ 100 mls/hr Q10H IV 04/29/17 22:11 05/03/17 04:00 (NS Flush) 2 ml UNSCH PRN IV FLUSH 04/29/17 22:15 (NS Flush) 2 ml BID IV FLUSH 04/30/17 09:00 (Zofran Inj) 4 mg Q6H PRN IVP 04/29/17 22:15 05/02/17 19:33 Naloxone HCl 0.4 mg 0.4 mg UNSCH PRN IV 04/29/17 22:15 (Cipro 400 Mg Premix) 200 ml @ 200 mls/hr Q12H IV 04/29/17 22:00 05/02/17 20:55 (Benadryl) 50 mg HS PO 04/30/17 21:00 05/02/17 20:55 Acetaminophen 1000 mg 1,000 mg HS PO 04/30/17 21:00 05/02/17 20:55 (Amicar Inj/NS Irr Bag) 3,012 ml @ 125.5 mls/ hr Q24H IRRIGATION 04/30/17 15:00 05/03/17 04:21 (B & O Supp) 60 mg Q6HR PRN RECTAL 04/30/17 14:15 05/01/17 01:54 (Dilaudid Pf Inj) 2 mg Q4H PRN IV PUSH 05/01/17 17:15 05/03/17 07:27 (Roxicodone) 15 mg Q4H PRN PO 05/01/17 17:15 05/03/17 04:30 (Tylenol) 325 mg Q4H PRN PO 05/02/17 11:30 05/02/17 14:37 Assessment and Plan Assessment and Plan 42 y.o male with acute onset of right flank pain with gross hematuria CT scan with IV contrast today; concern for malignancy vs AV malformation Continue Amicar CBI; pain control. 05/02 42 y.o male with acute onset of right flank pain with gross hematuria CT scan with possible filling defects right upper pole Continue Amicar CBI today Possible void trial in AM if urine clear. Right URS as outpt. 05/03 42 y.o male with acute onset of right flank pain with gross hematuria Void trial today Pt can be discharged today and call office on Saturday to schedule URS in a few weeks Pscripts on Chart; avoid NSAIDS Cem Torrez DO May 03, 2017 08:53
[2017-05-03] MEDS: ONDANSETRON HCL 4 MG/2 ML VIAL IVP PRN (09:03)
[2017-05-03] MEDS: SODIUM CHLORIDE 0.9% FLUSH 10 ML FLUSH IV FLUSH SCH (09:03)
[2017-05-03] MEDS: CIPROFLOXACIN 400 MG PREMIX 200 ML IV SCH (09:03)
[2017-05-03] MEDS: ACETAMINOPHEN 325 MG TAB PO PRN (09:10)
[2017-05-03] MEDS ORDERED: METHYLNALTREXONE BROMIDE 12 MG/0.6 ML VIAL SQ SCH ×2 (09:15→10:00)
[2017-05-03] MEDS ORDERED: BISACODYL 10 MG SUPP RECTAL ONE (09:15)
[2017-05-03] MEDS ORDERED: DOCUSATE SODIUM 100 MG CAP PO SCH (09:15)
[2017-05-03] MEDS ORDERED: POLYETHYLENE GLYCOL 17 GM PKG PO SCH (09:15)
[2017-05-03] MEDS ORDERED: MORPHINE SULFATE 15 MG CONTROLLED RELEASE TAB PO SCH (09:30)
[2017-05-03] MEDS ORDERED: CIPR-9 PO (16:46)
[2017-05-03] MEDS ORDERED: PHEN0.4T PO (16:47)
[2017-05-03] MEDS ORDERED: PERC5TAB12 PO (16:47)
--- NOTE | 2017-05-03 16:49 | HHI.DCPOC ---
Discharge Care Plan Additional Problems Hematuria, blood in urine Goals to Promote Your Health * To prevent worsening of your condition and complications * To maintain your health at the optimal level Directions to Meet Your Goals Take your medications as prescribed Follow your dietary instruction Follow activity as directed Contact Dr. Torrez's office on Saturday to schedule an appointment with him in a few weeks. Hydrate yourself daily with at least 8 glasses of water a day and avoid any NSAIDs including but not limited to aspirin Advil naproxen Inga Garcia. Purchase [id number] MiraLAX and take 1 packet daily to minimize constipation. Keep your appointments as scheduled Take your immunizations and boosters as scheduled If your symptoms worsen call your PCP, if no PCP go to Urgent Care Center or Emergency Room Smoking is Dangerous to Your Health. Avoid second hand smoke Call the 24-hour hour crisis hotline for domestic abuse at Mateo Arias MD May 03, 2017 16:49
--- NOTE | 2017-05-03 18:30 | HHI.DS ---
Discharge Summary Admission Date Apr 29, 2017 at 22:12 Discharge Date: May 03, 2017 Admitting Diagnosis obstructive uropathy (1) Obstructive uropathy ICD Code: N13.9 Procedures Cystoscopy with double-J stent placement on the right Brief History - From Admission The patient is a 42-year-old male with past medical history of kidney stones who is presenting to the hospital with severe right-sided flank pain. The patient said that yesterday he passed blood clots in his urine. He had some discomfort and soreness throughout the day and at work he had some bouts of severe pain at the right flank. He said the bouts of pain would come and go so he was able to stay at work for all 10 hours. His pain level would go to a 10/ 10 in severity at its worst. He continued to notice blood in his urine. He said the pain got so bad that he has been vomiting because of it. He says he last had an episode of kidney stones when he was in his 20s. He has had a few bouts of kidney stones in his life. CBC/BMP: 05/02/17 0630 05/02/17 0630 Significant Findings Laboratory Tests Test 04/30/17 05/01/17 05/02/17 20:12 06:49 06:30 Red Blood Count 4.23 MIL/MM3 4.24 MIL/MM3 4.19 MIL/MM3 (4.50-5.90) (4.50-5.90) (4.50-5.90) Platelet Count 138 TH/MM3 127 TH/MM3 142 TH/MM3 (150-450) (150-450) (150-450) Hematocrit 38.9 % 38.7 % (39.0-51.0) (39.0-51.0) Calcium Level 8.4 MG/DL (8.5-10.1) Creatinine 0.52 MG/DL (0.60-1.30) Imaging Last Impressions Abdomen/Pelvis CT 05/01/17 0000 Signed Impressions: Service Date/Time: Monday, May 01, 2017 18:23 - CONCLUSION: 1. Double-J stent present on the right. Proximally, there are 2 filling defects, located upper pole collecting system and in the renal pelvis in between the proximal loop of the stent. The location of the distal stent is equivocal and cannot confirm with certainty that the distal stent is coiled with in the lumen of the urinary bladder. There are some linear filling defects seen in the lumen of the urinary bladder on the right side which is elongated 2. No dilated loops of small large bowel. Induration of the fat in the perinephric and retroperitoneal region on the right side probably related to prior stent placement. Shan Reed MD Retrograde Pyelogram 04/30/17 0000 Signed Impressions: Service Date/Time: Sunday, April 30, 2017 13:55 - CONCLUSION: 1. Ureteral stent extending to the superior pole calyx with mild prominence of the collecting system. 2. No significant focal filling defect although the UPJ is nonvisualized. Leo Gardner MD PE at Discharge GENERAL: Resting comfortably, no acute distress EYES: No scleral icterus. No injection or drainage. CARDIOVASCULAR: Regular rate and rhythm without murmurs, gallops, or rubs. RESPIRATORY: Breath sounds equal bilaterally. No accessory muscle use. GASTROINTESTINAL: Abdomen soft, non-tender, nondistended. Calm mild right CVA tenderness palpation MUSCULOSKELETAL: No cyanosis, or edema. Patient is able to ambulate, stand up with a good gait. Hospital Course Pt as admitted started on IV hydration and antibiotics and IV pain meds. Urology was consulted, performed cystoscopy and placed a double J stent on the right. Hematuria still persisted for about a day or so, causes not clearly known. Repeat CT scans showed some filling defects in the upper pole of the right ureter. Patient had Covarrubias catheter eventually discontinued and passed spontaneous voiding trial, pain became under control with by mouth meds. urology cleared patient for discharge with close follow-up, patient did have issues with constipation, was put on aggressive laxative therapy and had a a relieving bowel movement. Patient had met maximum benefit from hospitalization and is clinically stable from discharge. Pt Condition on Discharge: Good Discharge Disposition: Discharge Home Discharge Time: > 30 minutes Discharge Instructions DIET: Follow Instructions for: Heart Healthy Diet Activities you can perform: Regular-No Restrictions Follow up Referrals: PCP Follow-up - 10 Days Urology New Medications: Ciprofloxacin (Cipro) 500 Mg Tab 500 MG PO BID Infection Days 10 Ref 0 TAB Oxycodone-Acetaminophen (Percocet) 5-325 mg Tab 1 TAB PO Q6H PRN PAIN #30 Ref 0 TAB Phenazopyridine (Pyridium) 100 Mg Tab 100 MG PO BID PRN DYSURIA #15 Ref 0 TAB Mateo Arias MD May 03, 2017 18:30
== END 2017-05-03 17:45 | disposition home or self-care (01) | DRG 694 ==
LOC: PHED 18:35 → PHEDA 22:12 → PH3A 23:40 → HOCA 04-30 22:41
PROVIDERS: ADMIT Hospitalist; ATTEND Hospitalist
PROC: BT1D1ZZ Fluoroscopy of Right Kidney, Ureter and Bladder using Low Osmolar Contrast (ICD-10-PCS; 2017-04-30)
PROC: 0T7D8ZZ Dilation of Urethra, Via Natural or Artificial Opening Endoscopic (ICD-10-PCS; 2017-04-30)
PROC: 0T768DZ Dilation of Right Ureter with Intraluminal Device, Via Natural or Artificial Opening Endoscopic (ICD-10-PCS; principal; 2017-04-30 13:13)
DX: N13.2 Hydronephrosis with renal and ureteral calculous obstruction (principal); D69.6 Thrombocytopenia, unspecified; N39.0 Urinary tract infection, site not specified; R11.2 Nausea with vomiting, unspecified; R31.0 Gross hematuria; K59.00 Constipation, unspecified; Z87.442 Personal history of urinary calculi; Z87.891 Personal history of nicotine dependence
CPT/HCPCS: 74176; 74178; 74420; 76000; 80048; 80053; 81001; 83735; 85025; 85027; 85610; 85730; 87086; 96361; 96374; 96375; 96376; C1769; C2617; J0744; J1170; J1885; J2212; J2250; J2270; J2405; J2765; J3010; J3480; J7030; Q0163; Q9967

== ENCOUNTER 2017-05-04 05:08 | Emergency (ER) | payer OTHER ==
[~2017-05-04] VITALS: Ht 190.5 cm; Wt 70.0 kg
[~2017-05-04 05:08] MED LIST changes: +CIPR-9 PO; -DIPH1TAB36 PO; +PERC5TAB12 PO; +PHEN0.4T PO; +[UNRECOGNIZED DRUG - CODE] PO
[2017-05-04 05:10] VITALS: BP 159/79; PULSE 66; RESP 16; TEMP 98.2; O2SAT 99
[2017-05-04] MEDS ORDERED: SODIUM CHLOR 0.9% 1000 ML INJ 1,000 ML IV SCH (05:14)
[2017-05-04] MEDS ORDERED: ONDANSETRON HCL 4 MG/2 ML VIAL IVP ONE (05:15)
[2017-05-04] MEDS ORDERED: HYDROmorphone HCL PF 1 MG/ML VIAL IVS ONE (05:15)
[2017-05-04] MEDS ORDERED: SODIUM CHLORIDE 0.9% FLUSH 10 ML FLUSH IV FLUSH PRN (05:15)
--- NOTE | 2017-05-04 05:24 | PD ---
HPI Chief Complaint: Flank/Kidney Pain Time Seen by Provider: 05:12 Travel History International Travel<30 days: No Contact w/Intl Traveler<30days: No Traveled to known affect area: No History of Present Illness HPI Patient is a 42-year-old male presents the emergency department with flank pain and hematuria. Patient was recently admitted on 04/29 with clot versus stone in the right ureter with associated obstruction. Patient had been having gross hematuria. He was taken the OR and had a ureteral stent placed by Dr. Torrez of urology. Postoperatively he continued to have hematuria and had Amicar continuous bladder irrigation. With the CBI his urine progressively improved to clear his Covarrubias was discontinued and he was discharged home from his hospital stay yesterday evening. Given instructions to return to the emergency department for any worsening or/recurrent bleeding and her pain. Patient states that around 11 PM yesterday evening he began to have recurrent hematuria , some small clots and right sided flank pain. He woke up around 4:30 this morning with worsening pain, right flank, suprapubic, nausea, no vomiting. States that he woke up in a pool of blood in his boxers, prompting repeat ER visit. Per chart review, urology had concerns for potential AV malformation versus malignancy of the right kidney causing patient's gross hematuria. PFSH Past Medical History Arthritis: No Anxiety: Yes Depression: Yes Cancer: No Cardiovascular Problems: No Diminished Hearing: No Diverticulitis: Yes Endocrine: No Gastrointestinal Disorders: Yes (COLITIS) GERD: No Genitourinary: Yes (on admit) Hiatal Hernia: No Immune Disorder: No Kidney Stones: Yes Musculoskeletal: Yes (BACK PROBS,KNEE PROBS- HX OF RIGHT FEMUR FRACTURE) Neurologic: No Psychiatric: Yes Reproductive: No Respiratory: No Immunizations Current: No Ulcer: No Influenza Vaccination: No Past Surgical History Abdominal Surgery: No Cardiac Surgery: No Ear Surgery: No Endocrine Surgery: No Eye Surgery: No Genitourinary Surgery: Yes (shunt in right kidney) Gynecologic Surgery: No Oral Surgery: No Pacemaker: No Thoracic Surgery: No Other Surgery: Yes Social History Alcohol Use: No Tobacco Use: Yes (E CIGS) Substance Use: No Allergies-Medications (Allergen,Severity, Reaction): Coded Allergies: Penicillin (Verified Allergy, Mild, 05/04/17) Reported Meds & Prescriptions Reported Meds & Active Scripts Active Pyridium (Phenazopyridine HCl) 100 Mg Tab 100 Mg PO BID PRN Percocet (Oxycodone-Acetaminophen) 5-325 mg Tab 1 Tab PO Q6H PRN Cipro (Ciprofloxacin HCl) 500 Mg Tab 500 Mg PO BID 10 Days Reported Pain Reliever Pm 500-25 mg (Diphenhydramine-Acetaminophen) 1 Tab Tab 2 Tab PO HS Review of Systems Except as stated in HPI: all other systems reviewed are Neg Physical Exam Narrative GENERAL: Cachectic male in moderate distress SKIN: Focused skin assessment warm/dry. HEAD: Normocephalic. EYES: No scleral icterus. No injection or drainage. ENT: Mucous membranes pink and moist. NECK: Supple CARDIOVASCULAR: Regular rate and rhythm. RESPIRATORY: No accessory muscle use. GASTROINTESTINAL: Abdomen soft, suprapubic and right sided CVA tenderness to palpation without rebound or guarding MUSCULOSKELETAL: No obvious deformities. No edema. NEUROLOGICAL: Awake and alert. Normal speech. PSYCHIATRIC: Appropriate mood and affect; insight and judgment normal. Data Data Last Documented VS Vital Signs Date Time Temp Pulse Resp B/P Pulse Ox O2 Delivery O2 Flow Rate FiO2 05/04/17 05:10 98.2 66 16 159/79 99 Orders Basic Metabolic Panel (Bmp) (05/04/17 05:14) Complete Blood Count With Diff (05/04/17 05:14) Urinalysis - C+S If Indicated (05/04/17 05:14) Iv Access Insert/Monitor (05/04/17 05:14) Ecg Monitoring (05/04/17 05:14) Oximetry (05/04/17 05:14) Ondansetron Inj (Zofran Inj) (05/04/17 05:15) Sodium Chlor 0.9% 1000 Ml Inj (Ns 1000 M (05/04/17 05:14) Sodium Chloride 0.9% Flush (Ns Flush) (05/04/17 05:15) Abdomen, Kub Only (05/04/17 05:14) Hydromorphone Pf Inj (Dilaudid Pf Inj) (05/04/17 05:15) Us Kidney/Renal/Bladder (05/04/17 ) Urine Culture (05/04/17 05:39) Ceftriaxone Inj (Rocephin Inj) (05/04/17 06:15) Labs Laboratory Tests Test 05/04/17 05/04/17 05:20 05:39 White Blood Count 6.5 TH/MM3 Red Blood Count 4.45 MIL/MM3 Hemoglobin 14.0 GM/DL Hematocrit 40.6 % Mean Corpuscular Volume 91.2 FL Mean Corpuscular Hemoglobin 31.5 PG Mean Corpuscular Hemoglobin 34.6 % Concent Red Cell Distribution Width 12.8 % Platelet Count 191 TH/MM3 Mean Platelet Volume 7.3 FL Neutrophils (%) (Auto) 62.0 % Lymphocytes (%) (Auto) 26.5 % Monocytes (%) (Auto) 7.9 % Eosinophils (%) (Auto) 3.3 % Basophils (%) (Auto) 0.3 % Neutrophils # (Auto) 4.0 TH/MM3 Lymphocytes # (Auto) 1.7 TH/MM3 Monocytes # (Auto) 0.5 TH/MM3 Eosinophils # (Auto) 0.2 TH/MM3 Basophils # (Auto) 0.0 TH/MM3 CBC Comment DIFF FINAL Differential Comment Sodium Level 140 MEQ/L Potassium Level 3.8 MEQ/L Chloride Level 103 MEQ/L Carbon Dioxide Level 29.8 MEQ/L Anion Gap 7 MEQ/L Blood Urea Nitrogen 10 MG/DL Creatinine 0.75 MG/DL Estimat Glomerular Filtration 115 ML/MIN Rate Random Glucose 90 MG/DL Calcium Level 8.8 MG/DL Urine Color DARK-BROWN Urine Turbidity HAZY Urine pH 6.5 Urine Specific Thrall 1.014 Urine Protein 100 mg/dL Urine Glucose (UA) NEG mg/dL Urine Ketones NEG mg/dL Urine Occult Blood LARGE Urine Nitrite POS Urine Bilirubin NEG Urine Urobilinogen 2.0 MG/DL Urine Leukocyte Esterase MOD Urine RBC /hpf Urine WBC 33 /hpf Urine WBC Clumps FEW Urine Bacteria MOD /hpf Urine Mucus FEW /lpf Microscopic Urinalysis Comment CULTURE INDICATED MDM Medical Decision Making Medical Screen Exam Complete: Yes Emergency Medical Condition: Yes Medical Record Reviewed: Yes Differential Diagnosis 42-year-old male with recent admission for obstructive uropathy, gross hematuria status post right ureteral stent here with complaint of right flank pain and hematuria after being discharged from the hospital just yesterday afternoon. Differential includes hematuria, UTI, ureteral stent displacement, bladder spasm, hydronephrosis, obstructive uropathy from clot Narrative Course Patient placed on monitor, IV established and blood obtained. Given 4 mg Zofran , 1 mg Dilaudid, 1 L normal saline bolus. CBC, BMP, urinalysis obtained and notable for positive nitrates with red cells, white cell, white cell clumps and bacteria. Patient was treated with Rocephin IV. Patient has had 2 CT scans of the abdomen and pelvis within the last week and I would like to avoid further radiation. Therefore KUB and renal/bladder ultrasound were obtained and showed no acute abnormalities, no evidence of obstruction or hydronephrosis. Patient has been on Cipro as an outpatient. We discussed repeat admission versus discharge to home. Patient's urine has been clearing up throughout his ER stay and is now mostly clear, knee on [place] from his Pyridium. Patient would like to go home, I think that this is reasonable as his urine has improved. Patient will be discharged, follow up with urology as scheduled for Saturday/Saturday. Will await his urine culture, patient to continue home ciprofloxacin. Diagnosis Primary Impression: Urinary tract infection Qualified Code: N30.01 - Acute cystitis with hematuria Additional Impressions: Gross hematuria Bladder spasm Referrals: Urologist 2 days Additional Instructions: Continue home medications. Follow-up with urologist as scheduled and return to the ER for the warning signs discussed. Med/Other Pt SpecificInfo: No Change to Meds Disposition: DISCHARGE HOME Condition: Stable Cherry Avery MD May 04, 2017 05:24
[2017-05-04 05:27] LABS: BASOPHIL % 0.3 % (0.0-2.0); EOSINOPHIL # 0.2 TH/MM3 (0-0.4); EOSINOPHIL % 3.3 % (0.0-4.0); HEMATOCRIT 40.6 % (39.0-51.0); HEMO FLAGS DIFF FINAL; LYMPH % 26.5 % (9.0-44.0); LYMPHOCYTE # 1.7 TH/MM3 (1.0-4.8); MEAN CELL VOLUME 91.2 FL (80.0-100.0); MEAN CORPUSCULAR HEMOGLOBIN 31.5 PG (27.0-34.0); MEAN CORPUSCULAR HGB CONC 34.6 % (32.0-36.0); MONO % 7.9 % (0.0-8.0); PLATELET COUNT 191 TH/MM3 (150-450); RED BLOOD COUNT 4.45 MIL/MM3 (4.50-5.90); RED CELL DISTRIBUTION WIDTH 12.8 % (11.6-17.2); WHITE BLOOD COUNT 6.5 TH/MM3 (4.0-11.0)
[2017-05-04 05:45] LABS: BICARBONATE 29.8 MEQ/L (21.0-32.0); POTASSIUM 3.8 MEQ/L (3.5-5.1)
--- NOTE | 2017-05-04 05:52 | RADRPT ---
EXAM DATE/TIME: 05/04/2017 05:13 [facility] COMPARISON: No previous studies available for comparison. INDICATIONS : Right side flank pain, hematuria MEDICAL HISTORY : Diverticulitis, Colitis SURGICAL HISTORY : None. ENCOUNTER: Initial ACUITY: 1 week PAIN SCORE: 8/10 LOCATION: Bilateral Abdomen FINDINGS: Supine view of the abdomen was performed. The abdominal bowel gas pattern is normal. No abnormal ma sses, calcifications, or organomegaly is seen. The osseous structures are unremarkable. A double-J s tent is present on the right in the expected position. CONCLUSION: 1. No evidence of obstruction. John Aviles MD on May 04, 2017 at 5:50 Board Certified Radiologist. This report was verified electronically.
[2017-05-04 06:00] LABS: BACTERIA, URINE MOD /hpf; BLOOD, URINE LARGE (NEG); COMMENT (UR) CULTURE INDICATED; CULTURE IF INDICATED CULTURE INDICATED; GLUCOSE,URINE NEG (NEG); KETONE, URINE NEG (NEG); MUCUS URINE FEW /lpf (OCC); PH, URINE 6.5 (5.0-8.5)
[2017-05-04 06:01] LABS: NITRITE,URINE POS (NEG); URINE COLOR DARK-BROWN (YELLW/STRAW)
[2017-05-04] MEDS ORDERED: cefTRIAXone INJ 2,000 MG in SODIUM CHLORIDE 0.9% INJ 100 ML IV ONE (06:15)
--- NOTE | 2017-05-04 06:34 | RADRPT ---
EXAM DATE/TIME: 05/04/2017 05:44 [facility] COMPARISON: CT ABDOMEN & PELVIS W & W/O CONTRAST, May 01, 2017, 18:23. INDICATIONS : Flank pain. MEDICAL HISTORY : Divereticulitis. Kidney stones. Depression. Anxiety. SURGICAL HISTORY : Right kidney shunt. Right leg surgery. Disk replament, neck. Circumcision. ENCOUNTER: Initial ACUITY: 4-6 days PAIN SCORE: 10/10 LOCATION: Bilateral flank MEASUREMENTS: RIGHT KIDNEY: 13.7 x 6.2 x 5.6 cm LEFT KIDNEY: 13.1 x 4.7 x 5.5 cm FINDINGS: RIGHT KIDNEY: Renal cortex is normal in thickness and echotexture. No hydronephrosis, stone, or mass. LEFT KIDNEY: Renal cortex is normal in thickness and echotexture. No hydronephrosis, stone, or mass. BLADDER: Within normal limits given the degree of distension. CONCLUSION: Unremarkable ultrasound examination of the kidneys. John Aviles MD on May 04, 2017 at 6:29 Board Certified Radiologist. This report was verified electronically.
== END 2017-05-04 07:21 | disposition home or self-care (01) ==
LOC: NEPE 05:08
DX: N39.0 Urinary tract infection, site not specified (principal); R31.0 Gross hematuria; N32.89 Other specified disorders of bladder; R11.0 Nausea; F41.9 Anxiety disorder, unspecified; F32.9 Major depressive disorder, single episode, unspecified; F17.290 Nicotine dependence, other tobacco product, uncomplicated; Z88.0 Allergy status to penicillin; Z79.899 Other long term (current) drug therapy
CPT/HCPCS: 74000; 76775; 80048; 81001; 85025; 87086; 96361; 96365; 96375; 99285; J0696; J1170; J2405; J7030

== ENCOUNTER → 2017-05-16 | Day surgery (SDC) | payer OTHER ==
[~2017-05-16] VITALS: Ht 190.5 cm; Wt 70.1 kg
[~2017-05-16] MED LIST changes: +BELLADONNA ALKALOIDS/OPIUM 60 MG SUPP RECTAL ONE; +BELLADONNA ALKALOIDS/OPIUM 60 MG SUPP RECTAL PRN; +CHLORHEXIDINE GLUCONATE 2 % 1 PACK (2 CLOTHS) TOPICAL PRN; +DO NOT ADM ANY ANTICOAGULANT DRUGS PRN; +GENTAMICIN INJ 240 MG in SODIUM CHLORIDE 0.9% INJ 100 ML IV SCH; +HYDROmorphone HCL PF 2 MG/ML VIAL IV PRN; +HYDROmorphone HCL PF 2 MG/ML VIAL ONE; +INSULIN HUMAN REGULAR 1,000 UNITS/10 ML VIAL SQ PRN; +IOHEXOL 350 MG/ML 50 ML BTL (for RAD DIAG) IV ONE; +LACTATED RINGER'S 1000 ML INJ 1,000 ML IV ONE; +LACTATED RINGER'S 1000 ML IV PRN; +LEVA750T9 PO; +METOPROLOL TARTRATE 25 MG TAB PO PRN; +MIDAZOLAM HCL 2 MG/2 ML VIAL ONE; +NEOSTIGMINE 3 MG/3 ML SYR IV ONE; +ONDANSETRON HCL 4 MG/2 ML VIAL IV PUSH ONE; +ONDANSETRON HCL 4 MG/2 ML VIAL IV PUSH PRN; +PHENYLEPH/NS 1000 MCG/10 ML SYR IV ONE; +POVIDONE IODINE 5% (ANTISEPSIS KIT) 4 APPLICATIONS EACH NARE PRN; +PROPOFOL 200 MG/20 ML AMP IV ONE; +SODIUM CHLORID 0.9% 500 ML IV PRN; +VANCOMYCIN HCL 500 MG ON-CALL/NS 100 ML IV SCH; +ePHEDrine/NS 25 MG/5 ML SYR IV ONE; +fentaNYL CITRATE 250 MCG/5 ML AMP ONE; +oxyCODONE/ACETAMINOPHEN 5 MG/325 MG TAB PO PRN
[2017-05-16 11:02] VITALS: BP 113/74; PULSE 80; RESP 20; TEMP 98.1; O2SAT 99
--- NOTE | 2017-05-16 13:07 | PD.OP ---
Operative Report Date of Surgery: May 16, 2017 Preoperative Diagnosis: Bleeding from right kidney/collecting system Postoperative Diagnosis: Bleeding from right kidney/collecting system with right renal calculus Procedure: Cystoscopy, right retrograde study, right ureteroscopy, stone extraction, right collecting system biopsy 2, right stent exchange Anesthesia: HARRISON Surgeon: Cem Torrez Spindle Plumber(s): None Operation and Findings: 42-year-old male who presented approximately 2 weeks ago with bleeding from his right collecting system/right kidney. He underwent cystoscopy with right double -J stent insertion. CT scan did suggest some filling defects within the collecting system. He is here today to undergo cystoscopy with right ureteroscopy with possible biopsy of the collecting system and stent exchange. Risk and benefits were discussed preoperatively and he is willing to proceed. The patient was brought to the operating room and identified by myself as John Saavedra. He was placed in the dorsal lithotomy position, prepped and draped in usual sterile fashion, received preprocedure antibiotics, and general endotracheal tube anesthesia was administered. 22 Kazakh cystoscope was inserted in the bladder and bernabe cystoscopy did not reveal any abnormalities. The right ureteral orifice was identified and the stent was in position. Using the alligator grasping forceps, the stent was brought out to the urethral meatus. A 0.35 sensor wire was then passed through the stent and up into the kidney. The stent was then removed. Attempt was made to pass the flexible ureteroscope along the wire into the right ureteral orifice but this was unsuccessful. Therefore, a ureteral access sheath was placed over the wire and up into the lower ureter. The flexible ureteroscope then passed easily up into the collecting system. Once in the collecting system no tumors were identified. There is no evidence of any active bleeding. A small stone was identified in the lower pole of the collecting system and using the nitinol basket it was retrieved without difficulty. The ureteroscope was then placed back up into the collecting system and a few biopsies were taken along the medial aspect of the collecting system. This was sent to pathology. A wash was done of the collecting system and this fluid was also sent for urine cytology. Bladder cytology was also sent during the course of the procedure. Retrograde study was performed with the flexible ureteroscope within the proximal ureter and no filling defects were identified. The 0.35 sensor wire was then passed through the ureteral access sheath and up into the kidney. A 5 Kazakh open-ended catheter was slid over the wire up into the proximal ureter and the wire was removed. A 16 Kazakh Covarrubias catheter was inserted into the bladder. The 5 Kazakh open-ended catheter was secured to the Covarrubias catheter and tied with a 2-0 silk suture. The patient was then awoken, extubated, and transferred to the recovery room in stable condition. He tolerated the procedure well. He will follow-up in the office in the a.m. to have his catheter removed. Cem Torrez DO May 16, 2017 13:07
--- NOTE | 2017-05-16 13:41 | RADRPT ---
EXAM DATE/TIME: 05/16/2017 12:13 [facility] COMPARISON: UROGRAM, RETROGRADE PYELO, April 30, 2017, 13:55. INDICATIONS : Stones .33 minutes CONTRAST: Instilled by Ordering Physician MEDICAL HISTORY : Renal calculi. SURGICAL HISTORY : None. ENCOUNTER: Initial ACUITY: 1 day PAIN SCORE: 0/10 LOCATION: Right abdomen FINDINGS: Multiple views from a retrograde pyelogram are submitted and demonstrate a right double pigtail urete ral stent catheter in place. There are no definite ureteral calculi visualized. Contrast is noted in the right collecting system. The distal catheter and bladder were not included on the images. CONCLUSION: Right pigtail stent catheter in place. Logan Sanchez MD on May 16, 2017 at 13:37 Board Certified Radiologist. This report was verified electronically.
[2017-05-16 13:46] LABS: BACTERIA, URINE RARE /hpf; BLOOD, URINE MOD (NEG); COMMENT (UR) CATH-CULTURE IND; CULTURE IF INDICATED CATH CULTURE IND; GLUCOSE,URINE NEG (NEG); HYALINE CAST, URINE 2 /lpf (RARE); KETONE, URINE NEG (NEG); NITRITE,URINE NEG (NEG); SQUAMOUS EPITHELIAL CELL URINE <1 /hpf (0-5); URINE COLOR YELLOW (YELLW/STRAW)
[2017-05-16 15:05] VITALS: BP 140/81; PULSE 77; RESP 18; TEMP 96.9; O2SAT 99
== END | disposition home or self-care (01) ==
LOC: HSDC 10:06
PROVIDERS: ATTEND Urology
DX: N20.0 Calculus of kidney (principal); R31.0 Gross hematuria
CPT/HCPCS: 00910; 52352; 52354; 74420; 81001; 82365; 82370; 87086; 88300; 88305; C1769; C2617; J1170; J1580; J2250; J2370; J2405; J2710; J3010; J7120; Q9967

== ENCOUNTER 2017-05-17 13:52 | Emergency (ER) | payer OTHER ==
[~2017-05-17] VITALS: Ht 190.5 cm; Wt 70.5 kg
[~2017-05-17 13:52] MED LIST changes: -BELLADONNA ALKALOIDS/OPIUM 60 MG SUPP RECTAL ONE; -BELLADONNA ALKALOIDS/OPIUM 60 MG SUPP RECTAL PRN; -CHLORHEXIDINE GLUCONATE 2 % 1 PACK (2 CLOTHS) TOPICAL PRN; -DO NOT ADM ANY ANTICOAGULANT DRUGS PRN; -GENTAMICIN INJ 240 MG in SODIUM CHLORIDE 0.9% INJ 100 ML IV SCH; -HYDROmorphone HCL PF 2 MG/ML VIAL IV PRN; -HYDROmorphone HCL PF 2 MG/ML VIAL ONE; -INSULIN HUMAN REGULAR 1,000 UNITS/10 ML VIAL SQ PRN; -IOHEXOL 350 MG/ML 50 ML BTL (for RAD DIAG) IV ONE; -LACTATED RINGER'S 1000 ML INJ 1,000 ML IV ONE; -LACTATED RINGER'S 1000 ML IV PRN; -LEVA750T9 PO; -METOPROLOL TARTRATE 25 MG TAB PO PRN; -MIDAZOLAM HCL 2 MG/2 ML VIAL ONE; -NEOSTIGMINE 3 MG/3 ML SYR IV ONE; -ONDANSETRON HCL 4 MG/2 ML VIAL IV PUSH ONE; -ONDANSETRON HCL 4 MG/2 ML VIAL IV PUSH PRN; -PHENYLEPH/NS 1000 MCG/10 ML SYR IV ONE; -POVIDONE IODINE 5% (ANTISEPSIS KIT) 4 APPLICATIONS EACH NARE PRN; -PROPOFOL 200 MG/20 ML AMP IV ONE; -SODIUM CHLORID 0.9% 500 ML IV PRN; -VANCOMYCIN HCL 500 MG ON-CALL/NS 100 ML IV SCH; -ePHEDrine/NS 25 MG/5 ML SYR IV ONE; -fentaNYL CITRATE 250 MCG/5 ML AMP ONE; -oxyCODONE/ACETAMINOPHEN 5 MG/325 MG TAB PO PRN
[2017-05-17 13:55] VITALS: BP 196/100; PULSE 104; RESP 24; TEMP 98.5; O2SAT 99
[2017-05-17] MEDS ORDERED: LEVA750T9 PO (14:09)
--- NOTE | 2017-05-17 14:29 | PD ---
HPI Chief Complaint: Complaint Time Seen by Provider: 14:25 Travel History International Travel<30 days: No Contact w/Intl Traveler<30days: No Traveled to known affect area: No History of Present Illness HPI Patient comes in complaining of bilateral flank pain and urinary retention. Patient states he's had his Covarrubias removed and stent exchanged earlier today at Dr. Torrez's office. Patient states that he did void at Dr. Torrez's prior to leaving but was told to come to the emergency department if he did not void within a couple hours or pain got worse. Patient states he took a Percocet around 11:00 for the pain with little to no improvement of symptoms. Patient denies anything making the pain worse to states is just progressively getting worse. Pain is mainly a pressure-like sensation in his lower abdomen that radiates to his kidneys and stabbing pain in bilateral flanks right greater than left. Patient states he was tried voiding multiple times including taking a hot shower as well as a cold shower. Patient even took [id number] water pill with no improvement of symptoms. PFSH Past Medical History Arthritis: No Anxiety: Yes Depression: Yes Cancer: No Cardiovascular Problems: No Diabetes: No Diminished Hearing: No Diverticulitis: Yes Endocrine: No Gastrointestinal Disorders: Yes (COLITIS) GERD: No Genitourinary: Yes (PAINFUL URINATION WITH BLOOD UPON STARTING) Hepatitis: No Hiatal Hernia: No Immune Disorder: No Kidney Stones: Yes Musculoskeletal: Yes (BACK PROBS,KNEE PROBS- HX OF RIGHT FEMUR FRACTURE) Neurologic: Yes (NECK PAIN) Psychiatric: No Reproductive: No Respiratory: No Immunizations Current: No Thyroid Disease: No Ulcer: No Tetanus Vaccination: < 5 Years Influenza Vaccination: No Past Surgical History Abdominal Surgery: No Body Medical Devices: HARDWARE IN NECK Cardiac Surgery: No Ear Surgery: No Endocrine Surgery: No Eye Surgery: No Genitourinary Surgery: Yes (STENT in right kidney) Gynecologic Surgery: No Joint Replacement: No Neurologic Surgery: Yes (C7 SURGERY) Oral Surgery: No Pacemaker: No Thoracic Surgery: No Other Surgery: Yes Social History Alcohol Use: No Tobacco Use: Yes (E CIGS) Substance Use: No Allergies-Medications (Allergen,Severity, Reaction): Coded Allergies: penicillin G (Unverified Allergy, Severe, hives, throat swelling, 05/17/17) Reported Meds & Prescriptions Reported Meds & Active Scripts Active Percocet (Oxycodone-Acetaminophen) 5-325 mg Tab 1 Tab PO Q6H PRN Reported Levaquin (Levofloxacin) 750 Mg Tablet 1 Tab PO DAILY Review of Systems Except as stated in HPI: all other systems reviewed are Neg Physical Exam Narrative GENERAL: Well-developed, well nourished, appears uncomfortable, and non-ill appearing. SKIN: Focused skin assessment warm and dry. HEAD: Atraumatic. Normocephalic. EYES: Pupils equal and round. EOMI. No scleral icterus. No injection or drainage. ENT: No nasal bleeding or discharge. Mucous membranes pink and moist. NECK: Trachea midline. Supple. No nuclear rigidity. CARDIOVASCULAR: Regular rate and rhythm. No murmur appreciated. RESPIRATORY: No accessory muscle use. No respiratory distress. Clear to auscultation. Breath sounds equal bilaterally. GASTROINTESTINAL: Abdomen soft, nondistended, and no guarding. Hepatic and splenic margins not palpable. Normal bowel sounds 4. No pulsatile mass. Patient reports there is palpation suprapubic area and bilateral CVA. MUSCULOSKELETAL: No obvious deformities. No clubbing. No cyanosis. No edema. Full range of motion. NEUROLOGICAL: Awake and alert. No obvious cranial nerve deficits. Motor grossly within normal limits. Normal speech. PSYCHIATRIC: Appropriate mood and affect; insight and judgment normal. Data Data Last Documented VS Vital Signs Date Time Temp Pulse Resp B/P Pulse Ox O2 Delivery O2 Flow Rate FiO2 05/17/17 15:30 17 05/17/17 15:15 98.0 74 120/76 99 05/17/17 14:54 Room Air Orders Iv Access Insert/Monitor (05/17/17 14:21) Ketorolac Inj (Toradol Inj) (05/17/17 14:30) Ondansetron Inj (Zofran Inj) (05/17/17 14:30) Sodium Chloride 0.9% Flush (Ns Flush) (05/17/17 14:30) Urinary Catheter Insert/Apply (05/17/17 14:24) MDM Medical Decision Making Medical Screen Exam Complete: Yes Emergency Medical Condition: Yes Differential Diagnosis Urinary retention, postoperative pain, bladder spasm, other Narrative Course Bladder scan was warm showed greater than 200 cc of urine. Covarrubias catheter was place with a little more than 400 cc removed. 1450 patient reassessed reports some improvement of symptoms status post Toradol and Covarrubias placement. Patient in no obvious distress upon re-evaluation. Discussed patient with Dr. Cope prior to discharge, who is in agreement with plan of care and disposition. Any questions/concerns in reference to patient diagnosis/condition discussed and clarified prior to patient's discharge. Reinforced sheer importance of close follow up with patient's urologist. Instructed patient to return to ED immediately, if symptoms return/worsen. Pt showed understanding of above instructions. Further instructions and recommendations were detailed in discharge paperwork. Pt ambulated without difficulty out of ED at discharge. Diagnosis Primary Impression: Urinary retention Referrals: Cem Torrez DO Patient Instructions: Covarrubias Catheter Placement and Care (ED), General Instructions, Urinary Retention in Men (ED) Additional Instructions: Follow-up with your urologist on Saturday or sooner if possible. Return to the emergency department if symptoms get worse fevers, unable tolerate fluids, chest pain, shortness of breath, or for other concerns. Disposition: 01 DISCHARGE HOME Condition: Stable Andre Love May 17, 2017 14:29
[2017-05-17] MEDS ORDERED: KETOROLAC TROMETHAMINE 30 MG/ML (IVP) VIAL IVP ONE (14:30)
[2017-05-17] MEDS ORDERED: SODIUM CHLORIDE 0.9% FLUSH 10 ML FLUSH IVF PRN (14:30)
[2017-05-17] MEDS ORDERED: ONDANSETRON HCL 4 MG/2 ML VIAL IVP ONE (14:30)
[2017-05-17 14:54] VITALS: BP 122/73; PULSE 70; RESP 18; TEMP 98.1; O2SAT 99
[2017-05-17 15:15] VITALS: BP 120/76; TEMP 98
[2017-05-17 15:30] VITALS: RESP 17
[2017-05-21] MEDS ORDERED: PERC5TAB12 PO (10:29)
== END 2017-05-17 15:20 | disposition home or self-care (01) ==
LOC: NEPC 13:52
DX: R33.9 Retention of urine, unspecified (principal); F41.9 Anxiety disorder, unspecified; F17.290 Nicotine dependence, other tobacco product, uncomplicated
CPT/HCPCS: 51702; 96374; 96375; 99284; J1885; J2405

== ENCOUNTER 2017-08-28 22:17 | Emergency (ER) | payer OTHER ==
[~2017-08-28] VITALS: Ht 190.5 cm; Wt 68.1 kg
[~2017-08-28 22:17] MED LIST changes: -CIPR-9 PO; +IOHEXOL 350 MG/ML 10 ML VIAL (for RAD DIAG) IVCONTRAST ONE; -PHEN0.4T PO; -[UNRECOGNIZED DRUG - CODE] PO
[2017-08-28 22:21] VITALS: BP 150/96; PULSE 80; RESP 16; TEMP 98.1; O2SAT 98
[2017-08-28] MEDS ORDERED: tylenol PM (22:31)
--- NOTE | 2017-08-28 22:41 | PD ---
HPI Chief Complaint: Chest Pain Time Seen by Provider: 22:33 Travel History International Travel<30 days: No Contact w/Intl Traveler<30days: No Traveled to known affect area: No History of Present Illness HPI 42-year-old male presents to the emergency department by private transportation the care of his spouse for complaint of left posterior calf pain and left chest pain. Patient states when he takes a deep breath he has a sharp stabbing pain in his left chest. Chest pain is not radiating to neck jaw back shoulder arm or abdomen. No sweats, no shortness of breath, no nausea, no vomiting, no near- syncope, or syncope. Patient has not noticed any swelling of the left lower extremity but complains of cramping type pain in the left lower calf area. Leg pain has been present for 2-3 days and stabbing chest pain began yesterday. Patient denies personal history of hypertension dyslipidemia diabetes CAD or previous similar chest pain. Patient does use electronic cigarettes. Patient does not have a family history of known clotting disorder or premature onset heart disease. Patient denies any recent long distance travel protracted bedrest her surgical procedure. Patient did undergo stenting of the ureter by Dr. Torrez April 2017. Patient denies having a stent in place at this time. Patient's had no injury or fall. Patient reportedly had a fever on Saturday times one day and has had no subsequent fever or respiratory illness symptoms. Patient denies cough productive of yellow-green sputum or hemoptysis. Patient also denies any easy bruising epistaxis hemoptysis hematemesis coffee-ground emesis melanoma hematochezia or hematuria. Patient rates his pain 7/10 in intensity. [facility] Past Medical History Narrative Medical Anxiety depression diverticulitis colitis rectal bleeding right femur fracture kidney stone ureteral stent C7 surgery electronic cigarettes; nursing notes reviewed Arthritis: No Anxiety: Yes Depression: Yes Cancer: No Cardiovascular Problems: No Diabetes: No Diminished Hearing: No Diverticulitis: Yes Endocrine: No Gastrointestinal Disorders: Yes (COLITIS) GERD: No Genitourinary: Yes (PAINFUL URINATION WITH BLOOD UPON STARTING) Hepatitis: No Hiatal Hernia: No Immune Disorder: No Kidney Stones: Yes Musculoskeletal: Yes (BACK PROBS,KNEE PROBS- HX OF RIGHT FEMUR FRACTURE) Neurologic: Yes (NECK PAIN) Psychiatric: No Reproductive: No Respiratory: No Immunizations Current: No Thyroid Disease: No Ulcer: No Past Surgical History Abdominal Surgery: No Body Medical Devices: HARDWARE IN NECK Cardiac Surgery: No Ear Surgery: No Endocrine Surgery: No Eye Surgery: No Genitourinary Surgery: Yes (STENT in right kidney) Gynecologic Surgery: No Joint Replacement: No Neurologic Surgery: Yes (C7 SURGERY) Oral Surgery: No Pacemaker: No Thoracic Surgery: No Other Surgery: Yes Social History Alcohol Use: No Tobacco Use: Yes (E CIGS) Substance Use: No Allergies-Medications (Allergen,Severity, Reaction): Coded Allergies: penicillin G (Unverified Allergy, Severe, hives, throat swelling, 08/28/17 ) Reported Meds & Prescriptions Reported Meds & Active Scripts Active Reported [tylenol PM] 1 HS Review of Systems Except as stated in HPI: all other systems reviewed are Neg General / Constitutional: Positive: Fever (Saturday x 1 day), No: Chills HENT: No: Congestion, Nosebleed Cardiovascular: Positive: Chest Pain or Discomfort ("stabbing" with deep inspiartion), No: Palpitations, Diaphoresis, Syncope, Dyspnea on exertion, Phlebitis Respiratory: No: Cough, Shortness of Breath, Wheezing, Hemoptysis Gastrointestinal: No: Nausea, Vomiting, Abdominal Pain, Hematemesis, Hematochezia Genitourinary: No: Hematuria, Flank Pain Musculoskeletal: Positive: Cramping (left calf --intermittent), Pain (left calf pain) Skin: No Rash Neurologic: No: Weakness Psychiatric: No: Anxiety Hematologic/Lymphatic: No: Easy Bruising, Lymph Node Enlargement Physical Exam Narrative GENERAL: Well-developed well-nourished male in no acute distress no respiratory distress SKIN: Warm and dry. HEAD: Normocephalic. EYES: No scleral icterus. No injection or drainage. NECK: Supple, trachea midline. No JVD or lymphadenopathy. CARDIOVASCULAR: Regular rate and rhythm without murmurs, gallops, or rubs. RESPIRATORY: Breath sounds equal bilaterally. No accessory muscle use. GASTROINTESTINAL: Abdomen soft, non-tender, nondistended. MUSCULOSKELETAL: No cyanosis, or edema. Attn LLE: Negative Homans. No palpable posterior calf cording. No pallor or coolness of the extremity. Capillary refill brisk and less than 2 seconds per digit. Dorsalis pedis pulse 2+ to palpation. Posterior tibialis pulse 2+ to palpation. BACK: Nontender without obvious deformity. No CVA tenderness. Data Data Last Documented VS Vital Signs Date Time Temp Pulse Resp B/P (MAP) Pulse Ox O2 Delivery O2 Flow Rate FiO2 08/29/17 01:10 66 16 149/89 (109) 99 Room Air 08/28/17 22:21 98.1 Orders Orders Electrocardiogram (08/28/17 22:33) Basic Metabolic Panel (Bmp) (08/28/17 22:33) Ckmb (Isoenzyme) Profile (08/28/17 22:33) Complete Blood Count With Diff (08/28/17 22:33) D-Dimer (08/28/17 22:33) Magnesium (Mg) (08/28/17 22:33) Prothrombin Time / Inr (Pt) (08/28/17 22:33) Act Partial Throm Time (Ptt) (08/28/17 22:33) Troponin I (08/28/17 22:33) Chest, Single Ap (08/28/17 22:33) Ecg Monitoring (08/28/17 22:33) Bilateral Bp Monitoring (08/28/17 22:33) Iv Access Insert/Monitor (08/28/17 22:33) Oximetry (08/28/17 22:33) Oxygen Administration (08/28/17 22:33) Aspirin Chew (Aspirin Chew) (08/28/17 22:45) Sodium Chloride 0.9% Flush (Ns Flush) (08/28/17 22:45) Us Leg Venous Doppler (08/28/17 ) CKMB (08/28/17 22:46) CKMB% (08/28/17 22:46) Ketorolac Inj (Toradol Inj) (08/29/17 00:00) Ct Pulmonary Angiogram (08/28/17 ) Iohexol 350 Inj (Omnipaque 350 Inj) (08/28/17 01:11) Urinalysis - C+S If Indicated (08/29/17 01:58) Labs Laboratory Tests Test 08/28/17 22:46 08/29/17 02:00 White Blood Count 7.6 TH/MM3 Red Blood Count 4.61 MIL/MM3 Hemoglobin 14.2 GM/DL Hematocrit 41.8 % Mean Corpuscular Volume 90.7 FL Mean Corpuscular Hemoglobin 30.9 PG Mean Corpuscular Hemoglobin Concent 34.0 % Red Cell Distribution Width 12.4 % Platelet Count 218 TH/MM3 Mean Platelet Volume 7.7 FL Neutrophils (%) (Auto) 68.5 % Lymphocytes (%) (Auto) 19.8 % Monocytes (%) (Auto) 6.7 % Eosinophils (%) (Auto) 3.8 % Basophils (%) (Auto) 1.2 % Neutrophils # (Auto) 5.2 TH/MM3 Lymphocytes # (Auto) 1.5 TH/MM3 Monocytes # (Auto) 0.5 TH/MM3 Eosinophils # (Auto) 0.3 TH/MM3 Basophils # (Auto) 0.1 TH/MM3 CBC Comment DIFF FINAL Differential Comment Prothrombin Time 11.2 SEC Prothromb Time International Ratio 1.0 RATIO Activated Partial Thromboplast Time 26.9 SEC D-Dimer Quantitative (PE/DVT) LESS THAN 0.19 MG/L FEU Blood Urea Nitrogen 23 MG/DL Creatinine 0.75 MG/DL Random Glucose 99 MG/DL Calcium Level 8.4 MG/DL Magnesium Level 2.2 MG/DL Sodium Level 139 MEQ/L Potassium Level 3.7 MEQ/L Chloride Level 105 MEQ/L Carbon Dioxide Level 26.3 MEQ/L Anion Gap 8 MEQ/L Estimat Glomerular Filtration Rate 115 ML/MIN Total Creatine Kinase 168 U/L Creatine Kinase MB 2.9 NG/ML Troponin I LESS THAN 0.02 NG/ML MDM Medical Decision Making Medical Screen Exam Complete: Yes Emergency Medical Condition: Yes Medical Record Reviewed: Yes Interpretation(s) EKG: Normal sinus rhythm rate 74 RSR prime V2 possible right ventricular conduction delay no acute ST elevation or injury pattern change or ectopy noted cxr: nad CT pulmonary angiogram: CONCLUSION: No pulmonary embolus. Dain Flores MD on August 29, 2017 at 1:18 Board Certified Radiologist. This report was verified electronically. CBC & BMP Diagram 08/28/17 22:46 Calcium Level 8.4 L, Magnesium Level 2.2 Vital Signs Date Time Temp Pulse Resp B/P (MAP) Pulse Ox O2 Delivery O2 Flow Rate FiO2 08/29/17 01:10 66 16 149/89 (109) 99 Room Air 08/29/17 00:38 16 08/28/17 23:57 65 18 162/98 (119) 99 Room Air 08/28/17 22:50 98 Room Air 08/28/17 22:50 152/99 (116) 154/95 (114) 08/28/17 22:50 98 Room Air 08/28/17 22:21 98.1 80 16 150/96 (114) 98 troponin I: less than 0.19, not elevated d-dimer: less than 0.19, not elevated UA: neg blood neg rbc's Differential Diagnosis DVT, electrolyte disturbance, musculoskeletal strain, limb ischemia, PE, pleurisy, costochondritis, pneumonia, ACS, [place] Narrative Course Patient placed on hedis nurse with continuous pulse oximetry; IV access obtained specimens collected and sent for resulting; EKG and imaging studies ordered. Patient administered aspirin 162 mg by mouth. Chest x-ray reveals no acute abnormality. CBC is automated differential values in normal range; metabolic panel values in normal range; troponin I is less than 0.02, not elevated Ultrasound of the left lower extremity identifies thrombus in the left posterior tibial vein at the level of the mid calf without other thrombus identified in the extremity. In view of patient's isolated distal deep vein thrombus identified and patient's complaint of pleuritic stabbing type pain with deep breathing even though d-dimer is less than 0.19 therefore consistent with low risk for PE by left value will still proceed with CT pulmonary angiogram CT pulmonary exam is negative for DVT Patient is aware of lab results imaging results and EKG. Discussion contacted regarding management of distal isolated thrombosis of the posterior tibial vein with anticoagulation versus allowing self-limiting management without anticoagulation and follow-up with ultrasound in 1-2 weeks. Patient has history of kidney stone requiring stenting with hematuria that required hospitalization due to the extent of hematuria and also episodes of rectal bleeding associated with external hemorrhoids and diverticulitis and colitis in the past year since 2016. Patient states she does not want to be placed on any anticoagulation at this time because of the risk to him outweighing the benefit. Patient is encouraged to take an enteric-coated aspirin daily. Patient is encouraged to have repeat ultrasound of the left lower extremity in the next 1-2 weeks. Patient is encouraged to return immediately to the nearest emergency department should he develop or noticed any swelling of the left lower leg there is pain that develops in the proximal calf/lower leg or popliteal fossa as will then need to be put on anticoagulation at that time. Patient agrees to the implementation of anticoagulation should he have any pain in the proximal lower leg or the popliteal fossa or develops swelling or repeat ultrasound shows evidence of propagation of isolated distal DVT. Patient also offered OBS admit to [facility] for complaint of chest pain risks: male, age 42 years, e-cigarette use. Patient declines obs admission for [facility] protocol. Perc:(<2% risk pe), low PE risk; well's (-1) with negative d-dimer --low risk/unlikely dvt. Diagnosis Primary Impression: Calf DVT (deep venous thrombosis) Qualified Codes: I82.4Z2 - Acute embolism and thrombosis of unspecified deep veins of left distal lower extremity Additional Impression: Chest pain, atypical Referrals: Primary Care Physician call for appointment Follow up with primary provider AND hematology Patient Instructions: General Instructions Departure Forms: Tests/Procedures, Work Release Special Instructions: no work x 2 days Additional Instructions: Take enteric-coated aspirin once daily May apply warm compress to posterior calf area intermittently for comfort as needed Return immediately to the nearest emergency department for any noted swelling of the left lower extremity or increased pain or increased symptoms developing in the left lower leg or knee area. 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 Disposition: 01 DISCHARGE HOME Condition: Stable Norma Ferris MD Aug 28, 2017 22:41
[2017-08-28] MEDS ORDERED: SODIUM CHLORIDE 0.9% FLUSH 10 ML FLUSH IVF PRN (22:45)
[2017-08-28] MEDS ORDERED: ASPIRIN 81 MG CHEW TAB PO ONE (22:45)
[2017-08-28 22:50] VITALS: BP_SYST 152; BP_SYST 154; BP_DIAS 95; BP_DIAS 99; O2SAT 98
[2017-08-28 22:55] LABS: AUTOMATED NEUTROPHIL # 5.2 TH/MM3 (1.8-7.7); BASOPHIL # 0.1 TH/MM3 (0-0.2); BASOPHIL % 1.2 % (0.0-2.0); EOSINOPHIL # 0.3 TH/MM3 (0-0.4); EOSINOPHIL % 3.8 % (0.0-4.0); HEMATOCRIT 41.8 % (39.0-51.0); HEMO FLAGS DIFF FINAL; LYMPH % 19.8 % (9.0-44.0); LYMPHOCYTE # 1.5 TH/MM3 (1.0-4.8); MEAN CELL VOLUME 90.7 FL (80.0-100.0); MEAN CORPUSCULAR HEMOGLOBIN 30.9 PG (27.0-34.0); MONO % 6.7 % (0.0-8.0); NEUT % 68.5 % (16.0-70.0); PLATELET COUNT 218 TH/MM3 (150-450); RED BLOOD COUNT 4.61 MIL/MM3 (4.50-5.90); RED CELL DISTRIBUTION WIDTH 12.4 % (11.6-17.2); WHITE BLOOD COUNT 7.6 TH/MM3 (4.0-11.0)
--- NOTE | 2017-08-28 22:56 | RADRPT ---
EXAM DATE/TIME: 08/28/2017 22:37 [facility] COMPARISON: No previous studies available for comparison. INDICATIONS : Chest pain. MEDICAL HISTORY : Asthma. SURGICAL HISTORY : None. ENCOUNTER: Initial ACUITY: 1 day PAIN SCORE: 7/10 LOCATION: Bilateral chest FINDINGS: A single view of the chest demonstrates the lungs to be symmetrically, but hyper aerated without evid ence of mass, infiltrate or effusion. The cardiomediastinal contours are unremarkable. Osseous stru ctures are intact. CONCLUSION: Hyperinflation with no acute cardiac pulmonary process. Mike Tovar MD on August 28, 2017 at 22:53 Board Certified Radiologist. This report was verified electronically.
[2017-08-28 23:04] LABS: CHLORIDE 105 MEQ/L (98-107); POTASSIUM 3.7 MEQ/L (3.5-5.1); SODIUM (NA) 139 MEQ/L (136-145)
[2017-08-28 23:07] LABS: ANION GAP 8 MEQ/L (5-15); BICARBONATE 26.3 MEQ/L (21.0-32.0); BLOOD UREA NITROGEN 23 MG/DL (7-18); MAGNESIUM 2.2 MG/DL (1.5-2.5)
[2017-08-28 23:11] LABS: GLOMERULAR FILTRATION RATE 115 ML/MIN (>89)
[2017-08-28 23:12] LABS: APTT (PATIENT) 26.9 SEC (24.3-30.1); PROTHROMBIN TIME - PATIENT 11.2 SEC (9.8-11.6)
[2017-08-28 23:14] LABS: CREATINE KINASE 168 U/L (39-308)
[2017-08-28 23:26] LABS: CKMB 2.9 NG/ML (0.5-3.6)
--- NOTE | 2017-08-28 23:41 | RADRPT ---
EXAM DATE/TIME: 08/28/2017 23:06 [facility] COMPARISON: No previous studies available for comparison. INDICATIONS : Left leg pain. MEDICAL HISTORY : Colitis. Diverticulitis. Kidney stones. Urinary tract infection. Anxiety. Depression. SURGICAL HISTORY : Right femur fracture repair. Spinal surgery. ENCOUNTER: Initial ACUITY: 3 days PAIN SCORE: 8/10 LOCATION: Left leg. TECHNIQUE: Venous ultrasound of the leg was performed from the inguinal ligament to the proximal calf. Real-dee e, color Doppler and spectral tracing, compression and augmentation techniques were used. FINDINGS: There is normal compressibility of the deep venous system from the inguinal region to the proximal ca lf. No echogenic clot is seen in the lumen of the common femoral, femoral, and popliteal veins. The re is thrombus in the posterior tibial vein. There is a normal response of the venous system to proxi mal and distal augmentation and respiration. CONCLUSION: Thrombus in the posterior tibial vein at the mid calf. The remaining teeth are deep venous system is patent. Dain Flores MD on August 28, 2017 at 23:37 Board Certified Radiologist. This report was verified electronically.
[2017-08-28 23:57] VITALS: BP 162/98; PULSE 65; RESP 18; O2SAT 99
[2017-08-29] MEDS ORDERED: KETOROLAC TROMETHAMINE 30 MG/ML (IVP) VIAL IV PUSH ONE
[2017-08-29 01:10] VITALS: BP 149/89; PULSE 66; RESP 16; O2SAT 99
--- NOTE | 2017-08-29 01:25 | RADRPT ---
EXAM DATE/TIME: 08/29/2017 00:56 [facility] COMPARISON: No previous studies available for comparison. INDICATIONS : Left posterior chest pinching pain. Thrombus in left leg. Evaluate for pulmonary embolism. IV CONTRAST: 70 cc Omnipaque 350 (iohexol) IV RADIATION DOSE: 7.88 CTDIvol (mGy) MEDICAL HISTORY : None SURGICAL HISTORY : None. ENCOUNTER: Initial ACUITY: 1 day PAIN SCALE: 5/10 LOCATION: chest TECHNIQUE: Volumetric scanning of the chest was performed using a pulmonary embolism protocol MIP images were re constructed. Using automated exposure control and adjustment of the mA and/or kV according to patien t size, radiation dose was kept as low as reasonably achievable to obtain optimal diagnostic quality images. DICOM format image data is available electronically for review and comparison. Follow-up recommendations for detected pulmonary nodules are based at a minimum on nodule size and pa tient risk factors according to Fleischner Society Guidelines. FINDINGS: PULMONARY ARTERIES: No filling defects are seen in the pulmonary arteries through the segmental level. LUNGS: There is linear suspected atelectasis in the posterior lower lobes. PLEURAE: There is no pleural thickening or pleural effusion. MEDIASTINUM: There is good visualization of the great vessels of the middle mediastinum. No evidence of mediastin al or hilar adenopathy/mass. MUSCULOSKELETAL: Within normal limits for patient age. MISCELLANEOUS: The visualized upper abdominal organs demonstrate no acute abnormality. CONCLUSION: No pulmonary embolus. Dain Flores MD on August 29, 2017 at 1:18 Board Certified Radiologist. This report was verified electronically.
[2017-08-29 02:07] LABS: BLOOD, URINE NEG (NEG); GLUCOSE,URINE NEG (NEG); KETONE, URINE NEG (NEG); NITRITE,URINE NEG (NEG); PH, URINE 7.5 (5.0-8.5)
[2017-08-29 02:13] VITALS: BP 138/83; PULSE 64; RESP 16; O2SAT 99
[2017-08-29 02:13] LABS: URINE COLOR YELLOW (YELLW/STRAW)
[2017-08-29 02:14] LABS: COMMENT (UR) CULT NOT INDICATED; CULTURE IF INDICATED CULT NOT INDICATED; RBC, URINE 0-2 /hpf (0-3); SQUAMOUS EPITHELIAL CELL URINE 0-5 /hpf (0-5); WBC, URINE 0-2 /hpf (0-5)
[2017-08-29] MEDS ORDERED: DIPH25TA31 PO (10:46)
--- NOTE | 2017-08-29 16:17 | EKG ---
Date Performed: 08/28/2017 Time Performed: 22:46:21 PTAGE: 42 years EKG: Sinus rhythm POSSIBLE RIGHT VENTRICULAR CONDUCTION DELAY BORDERLINE ECG Since PREVIOUS TRACING , no significant change noted PREVIOUS TRACIN05/11/2010 16.59 DOCTOR: Chio Cadena Interpretating Date/Time 08/29/2017 16:17:06
== END 2017-08-29 02:36 | disposition home or self-care (01) ==
LOC: PHED 22:17
DX: I82.442 Acute embolism and thrombosis of left tibial vein (principal); R07.89 Other chest pain; F17.290 Nicotine dependence, other tobacco product, uncomplicated
CPT/HCPCS: 71010; 71275; 80048; 81001; 82550; 82552; 83735; 84484; 85025; 85379; 85610; 85730; 93005; 93971; 96374; 99285; J1885; Q9967

== ENCOUNTER 2017-09-01 16:16 | Emergency (ER) | payer OTHER ==
[~2017-09-01] VITALS: Ht 190.5 cm; Wt 69.0 kg
[~2017-09-01 16:16] MED LIST changes: +DIPH25TA31 PO; -IOHEXOL 350 MG/ML 10 ML VIAL (for RAD DIAG) IVCONTRAST ONE; -PERC5TAB12 PO
[2017-09-01 16:21] VITALS: BP 166/91; PULSE 84; RESP 16; TEMP 97.8; O2SAT 100
[2017-09-01] MEDS ORDERED: ASPI-183 PO (16:31)
--- NOTE | 2017-09-01 16:35 | PD ---
HPI Chief Complaint: Musculoskeletal Complaint Time Seen by Provider: 16:30 Travel History International Travel<30 days: No Contact w/Intl Traveler<30days: No Traveled to known affect area: No History of Present Illness HPI 42-year-old male recently diagnosed with left calf DVT on August 28, presents to emergency department for reevaluation of this. Patient was discharged home on aspirin due to recent history of hematuria and rectal bleeding. He is concerned that the DVT may be growing. He tells me that he does have pain still in his posterior calf and he feels like it is getting closer to his knee. Pain is an ache-like sensation, worse first in the morning when he starts to walk. Denies any fever, chills. No new injury. Patient has no chest tightness or shortness of breath. No other symptoms to report. PFSH Past Medical History Arthritis: No Anxiety: Yes Depression: Yes Cancer: No Cardiovascular Problems: No Diabetes: No Diminished Hearing: No Diverticulitis: Yes Endocrine: No Gastrointestinal Disorders: Yes (COLITIS) GERD: No Genitourinary: Yes (PAINFUL URINATION WITH BLOOD UPON STARTING) Hepatitis: No Hiatal Hernia: No Immune Disorder: No Kidney Stones: Yes Musculoskeletal: Yes (BACK PROBS,KNEE PROBS- HX OF RIGHT FEMUR FRACTURE) Neurologic: Yes (NECK PAIN) Psychiatric: No Reproductive: No Respiratory: No Immunizations Current: No Thyroid Disease: No Ulcer: No Past Surgical History Abdominal Surgery: No Body Medical Devices: HARDWARE IN NECK Cardiac Surgery: No Ear Surgery: No Endocrine Surgery: No Eye Surgery: No Genitourinary Surgery: Yes (STENT in right kidney) Gynecologic Surgery: No Joint Replacement: No Neurologic Surgery: Yes (C7 SURGERY) Oral Surgery: No Pacemaker: No Thoracic Surgery: No Other Surgery: Yes Social History Alcohol Use: No Tobacco Use: Yes (E CIGS) Substance Use: No Allergies-Medications (Allergen,Severity, Reaction): Coded Allergies: penicillin G (Unverified Allergy, Severe, hives, throat swelling, 09/01/17) Reported Meds & Prescriptions Reported Meds & Active Scripts Active Reported Aspirin 325 Mg Tab 325 Mg PO BID Acetaminophen Pm Caplet (Acetaminophen/Diphenhydramine) 500 Mg-25 Mg Tablet 1 Tab PO HS Review of Systems Except as stated in HPI: all other systems reviewed are Neg Physical Exam Narrative GENERAL: Well-nourished male patient, ambulatory and in no acute distress SKIN: Warm and dry. No erythema HEAD: Normocephalic. EYES: No scleral icterus. No injection or drainage. NECK: Supple, trachea midline. No JVD or lymphadenopathy. CARDIOVASCULAR: Regular rate and rhythm without murmurs, gallops, or rubs. RESPIRATORY: Breath sounds equal bilaterally. No accessory muscle use. GASTROINTESTINAL: Abdomen soft, non-tender, nondistended. MUSCULOSKELETAL: No cyanosis, or a mild edema of the left lower extremity distal to the knee. Tenderness elicited to palpation. The left calf. Negative Homans. No erythema. BACK: Nontender without obvious deformity. No CVA tenderness. Data Data Last Documented VS Vital Signs Date Time Temp Pulse Resp B/P (MAP) Pulse Ox O2 Delivery O2 Flow Rate FiO2 09/01/17 18:01 09/01/17 16:21 97.8 84 16 100 Orders Orders Us Leg Venous Doppler (09/01/17 ) Ed Discharge Order (09/01/17 17:57) MDM Medical Decision Making Medical Screen Exam Complete: Yes Emergency Medical Condition: Yes Medical Record Reviewed: Yes Differential Diagnosis DVT, worsening versus improving versus staying the same versus muscle strain versus anxiety Narrative Course 42-year-old male presents to the emergency department for reevaluation of a DVT diagnosed last week. Ultrasound reveals that there has been no significant change. I discussed this with the patient who again wishes to stay on aspirin due to recent history of hematuria and rectal bleeding. I have encouraged follow-up with the primary care provider. He has been provided resources for this. He is to get ultrasound repeated in the next 1-2 weeks and return immediately with any acute worsening of symptoms. Diagnosis Primary Impression: DVT (deep venous thrombosis) Qualified Codes: I82.442 - Acute embolism and thrombosis of left tibial vein Referrals: Primary Care Physician Patient Instructions: Deep Venous Thrombosis (ED), General Instructions Additional Instructions: Continue aspirin as previously instructed Follow-up with her primary care provider Repeat ultrasound in 1-2 weeks Return immediately with any acute worsening symptoms Med/Other Pt SpecificInfo: No Change to Meds Disposition: 01 DISCHARGE HOME Condition: Stable DayanaRhina PAINTER Sep 01, 2017 16:35
--- NOTE | 2017-09-01 17:54 | RADRPT ---
EXAM DATE/TIME: 09/01/2017 17:26 [facility] COMPARISON: US LEG LEFT VENOUS DOPPLER, August 28, 2017, 23:06. INDICATIONS : Left leg pain. Deep vein thrombosis. MEDICAL HISTORY : Colitis. Diverticulitis. Kidney stones. Urinary tract infection. Anxiety. Depression. DVT. Anticoagul ant therapy, Aspirin 325mg. SURGICAL HISTORY : Right femur fracture repair. Spinal surgery. ENCOUNTER: Subsequent ACUITY: 1 week PAIN SCORE: 6/10 LOCATION: Left leg. TECHNIQUE: Venous ultrasound of the leg was performed from the inguinal ligament to the proximal calf. Real-dee e, color Doppler and spectral tracing, compression and augmentation techniques were used. FINDINGS: Thrombus is again seen at the level of the left calf within the posterior tibial vein. This does not appear substantially changed in the interim. Other venous tributaries of the left lower extremity rem ain patent. CONCLUSION: No significant change. Persistent left posterior tibial vein thrombosis. Dain Galvan MD on September 01, 2017 at 17:50 Board Certified Radiologist. This report was verified electronically.
== END 2017-09-01 18:10 | disposition home or self-care (01) ==
LOC: PHEFT 16:16
DX: I82.442 Acute embolism and thrombosis of left tibial vein (principal); F32.9 Major depressive disorder, single episode, unspecified; F17.290 Nicotine dependence, other tobacco product, uncomplicated; Z88.0 Allergy status to penicillin; Z79.82 Long term (current) use of aspirin
CPT/HCPCS: 93971

== ENCOUNTER 2017-10-13 00:28 | Emergency (ER) | payer OTHER ==
[~2017-10-13] VITALS: Ht 190.5 cm; Wt 75.0 kg
[~2017-10-13 00:28] MED LIST changes: +ASPI-183 PO
[2017-10-13 00:51] VITALS: BP 152/96; PULSE 77; RESP 16; TEMP 99; O2SAT 97
[2017-10-13] MEDS ORDERED: SODIUM CHLOR 0.9% 1000 ML INJ 1,000 ML IV ONE ×2 (01:00→03:00)
[2017-10-13 01:36] LABS: AUTOMATED NEUTROPHIL # 2.9 TH/MM3 (1.8-7.7); BASOPHIL % 0.4 % (0.0-2.0); EOSINOPHIL # 0.1 TH/MM3 (0-0.4); EOSINOPHIL % 3.1 % (0.0-4.0); HEMATOCRIT 38.7 % (39.0-51.0); HEMOGLOBIN 13.4 GM/DL (13.0-17.0); LYMPH % 8.4 % (9.0-44.0); LYMPHOCYTE # 0.3 TH/MM3 (1.0-4.8); MEAN CELL VOLUME 92.2 FL (80.0-100.0); MEAN CORPUSCULAR HEMOGLOBIN 31.9 PG (27.0-34.0); MEAN CORPUSCULAR HGB CONC 34.7 % (32.0-36.0); MEAN PLATELET VOLUME 8.1 FL (7.0-11.0); MONO % 8.3 % (0.0-8.0); MONOCYTE # 0.3 TH/MM3 (0-0.9); NEUT % 79.8 % (16.0-70.0); PLATELET COUNT 134 TH/MM3 (150-450); RED CELL DISTRIBUTION WIDTH 13.3 % (11.6-17.2); WHITE BLOOD COUNT 3.6 TH/MM3 (4.0-11.0)
[2017-10-13 01:42] LABS: ALBUMIN 3.4 GM/DL (3.4-5.0); ALT (GPT) 181 U/L (12-78); AST (GOT) 220 U/L (15-37); BICARBONATE 27.6 MEQ/L (21.0-32.0); BLOOD UREA NITROGEN 18 MG/DL (7-18); CALCIUM 8.3 MG/DL (8.5-10.1); CHLORIDE 106 MEQ/L (98-107); CREATININE 0.67 MG/DL (0.60-1.30); GLOMERULAR FILTRATION RATE 131 ML/MIN (>89); GLUCOSE,RANDOM 82 MG/DL (74-106); SODIUM (NA) 140 MEQ/L (136-145)
[2017-10-13 01:44] LABS: ALKALINE PHOSPHATASE 104 U/L (45-117); TOTAL BILIRUBIN ADULT 0.2 MG/DL (0.2-1.0); TOTAL PROTEIN 6.1 GM/DL (6.4-8.2)
--- NOTE | 2017-10-13 02:04 | PD ---
HPI . Cold/flu symptoms Chief Complaint: Cold / Flu Symptoms Time Seen by Provider: 00:50 Travel History International Travel<30 days: No Contact w/Intl Traveler<30days: No Traveled to known affect area: No History of Present Illness HPI 42-year-old male complains of generalized body aches, multiple sores erupting on patient's forearms, which patient states is from the carbon and medical fragments from a history of global causing a primarily of his left forearm on the dorsal aspect. Patient notes feeling feverish but is unquantified, has Gen. myalgias and arthralgias. Denies any other rashes neck stiffness, visual changes, headaches, chest pain, cough, abdominal pain nausea vomiting. Patient has no significant travel history, and no contacts PFSH Past Medical History Narrative Medical Past medical history reviewed Arthritis: No Anxiety: Yes Depression: Yes Cancer: No Cardiovascular Problems: No Diabetes: No Diminished Hearing: No Diverticulitis: Yes Endocrine: No Gastrointestinal Disorders: Yes (COLITIS) GERD: No Genitourinary: Yes (PAINFUL URINATION WITH BLOOD UPON STARTING) Hepatitis: No Hiatal Hernia: No Immune Disorder: No Kidney Stones: Yes Musculoskeletal: Yes (BACK PROBS,KNEE PROBS- HX OF RIGHT FEMUR FRACTURE) Neurologic: Yes (NECK PAIN) Psychiatric: No Reproductive: No Respiratory: No Immunizations Current: No Thyroid Disease: No Ulcer: No Past Surgical History Abdominal Surgery: No Body Medical Devices: HARDWARE IN NECK Cardiac Surgery: No Ear Surgery: No Endocrine Surgery: No Eye Surgery: No Genitourinary Surgery: Yes (STENT in right kidney) Gynecologic Surgery: No Joint Replacement: No Neurologic Surgery: Yes (C7 SURGERY) Oral Surgery: No Pacemaker: No Thoracic Surgery: No Other Surgery: Yes Social History Alcohol Use: No Tobacco Use: Yes (E CIGS) Substance Use: No Allergies-Medications (Allergen,Severity, Reaction): Coded Allergies: penicillin G (Verified Allergy, Severe, hives, throat swelling, 10/13/17) Reported Meds & Prescriptions Reported Meds & Active Scripts Active Reported Aspirin 325 Mg Tab 325 Mg PO BID Acetaminophen Pm Caplet (Acetaminophen/Diphenhydramine) 500 Mg-25 Mg Tablet 1 Tab PO HS Narrative Medication Allergies and medications reviewed Review of Systems Except as stated in HPI: all other systems reviewed are Neg General / Constitutional: No: Fever Eyes: No: Visual changes HENT: No: Headaches Cardiovascular: No: Chest Pain or Discomfort Respiratory: No: Shortness of Breath Gastrointestinal: No: Abdominal Pain Genitourinary: No: Dysuria Musculoskeletal: Positive: Myalgias, Arthralgias, No: Pain Skin: No Rash Neurologic: No: Weakness Psychiatric: No: Depression Endocrine: No: Polydipsia Hematologic/Lymphatic: No: Easy Bruising Physical Exam Narrative GENERAL: Awake alert oriented 3 no acute distress. Vital signs afebrile normal and stable SKIN: Warm and dry. Color slightly sallow, no diaphoresis cyanosis or pallor HEAD: Atraumatic. Normocephalic. EYES: Pupils equal and round. No scleral icterus. No injection or drainage. ENT: No nasal bleeding or discharge. Mucous membranes pink and moist. NECK: Trachea midline. No JVD. Supple full range of motion CARDIOVASCULAR: Regular rate and rhythm. S1-S2 no murmurs or gallops RESPIRATORY: No accessory muscle use. Clear to auscultation. Breath sounds equal bilaterally. GASTROINTESTINAL: Abdomen soft, non-tender, nondistended. Hepatic and splenic margins not palpable. MUSCULOSKELETAL: Excoriations on patient's left dorsal forearm primarily in about his mouth consistent with patient's history. Full range of motion no edema neurovascular intact NEUROLOGICAL: Awake and alert. No obvious cranial nerve deficits. Motor grossly within normal limits. Five out of 5 muscle strength in the arms and legs. Normal speech. PSYCHIATRIC: Appropriate mood and affect; insight and judgment normal. Data Data Last Documented VS Vital Signs Date Time Temp Pulse Resp B/P (MAP) Pulse Ox O2 Delivery O2 Flow Rate FiO2 10/13/17 00:51 99.0 77 16 152/96 (114) 97 Room Air Orders Orders Iv Access Insert/Monitor (10/13/17 00:59) Complete Blood Count With Diff (10/13/17 00:59) Comprehensive Metabolic Panel (10/13/17 00:59) Urinalysis - C+S If Indicated (10/13/17 00:59) Influenzae A/B Antigen (10/13/17 00:59) Group A Rapid Strep Screen (10/13/17 00:59) Blood Culture (10/13/17 00:59) Westergren Sedimentation Rate (10/13/17 00:59) Sodium Chlor 0.9% 1000 Ml Inj (Ns 1000 M (10/13/17 01:00) Strep Culture (Group A) (10/13/17 01:08) Ketorolac Inj (Toradol Inj) (10/13/17 03:00) Sodium Chlor 0.9% 1000 Ml Inj (Ns 1000 M (10/13/17 03:00) Hepatitis Profile (10/13/17 02:57) Oseltamivir (Tamiflu) (10/13/17 03:00) Labs Laboratory Tests Test 10/13/17 01:10 White Blood Count 3.6 TH/MM3 Red Blood Count 4.20 MIL/MM3 Hemoglobin 13.4 GM/DL Hematocrit 38.7 % Mean Corpuscular Volume 92.2 FL Mean Corpuscular Hemoglobin 31.9 PG Mean Corpuscular Hemoglobin Concent 34.7 % Red Cell Distribution Width 13.3 % Platelet Count 134 TH/MM3 Mean Platelet Volume 8.1 FL Neutrophils (%) (Auto) 79.8 % Lymphocytes (%) (Auto) 8.4 % Monocytes (%) (Auto) 8.3 % Eosinophils (%) (Auto) 3.1 % Basophils (%) (Auto) 0.4 % Neutrophils # (Auto) 2.9 TH/MM3 Lymphocytes # (Auto) 0.3 TH/MM3 Monocytes # (Auto) 0.3 TH/MM3 Eosinophils # (Auto) 0.1 TH/MM3 Basophils # (Auto) 0.0 TH/MM3 CBC Comment DIFF FINAL Differential Comment Erythrocyte Sedimentation Rate 6 mm/hr Blood Urea Nitrogen 18 MG/DL Creatinine 0.67 MG/DL Random Glucose 82 MG/DL Total Protein 6.1 GM/DL Albumin 3.4 GM/DL Calcium Level 8.3 MG/DL Alkaline Phosphatase 104 U/L Aspartate Amino Transf (AST/SGOT) 220 U/L Alanine Aminotransferase (ALT/SGPT) 181 U/L Total Bilirubin 0.2 MG/DL Sodium Level 140 MEQ/L Potassium Level 3.6 MEQ/L Chloride Level 106 MEQ/L Carbon Dioxide Level 27.6 MEQ/L Anion Gap 6 MEQ/L Estimat Glomerular Filtration Rate 131 ML/MIN [facility] Medical Decision Making Medical Screen Exam Complete: Yes Emergency Medical Condition: Yes Medical Record Reviewed: Yes Differential Diagnosis Viral syndrome, influenza Narrative Course Influenza swab positive. Patient treated with Tamiflu anti-inflammatories and IV fluids. Discharge Diagnosis Primary Impression: Influenza Patient Instructions: General Instructions, Influenza (DC) Additional Instructions: Tamiflu 75 mg twice daily for 5 days. Drink plenty of fluids. Suggested Advil cold and flu [id number] for aches and pains. Recommend repeat laboratory examinations for elevated liver enzymes later this week. Hepatitis viral screen pending Follow-up with your doctor. Return for worsening Scripts Oseltamivir (Tamiflu) 75 Mg Cap 75 MG PO BID for Mgmt Viral Infection for 5 Days, #10 CAP 0 Refills Prov: Joey Carpenter MD 10/13/17 Disposition: 01 DISCHARGE HOME Condition: Stable Joey Carpenter MD Oct 13, 2017 02:04
[2017-10-13] MEDS ORDERED: KETOROLAC TROMETHAMINE 30 MG/ML (IVP) VIAL IV PUSH ONE (03:00)
[2017-10-13] MEDS ORDERED: OSELTAMIVIR PHOSPHATE 75 MG CAP PO ONE (03:00)
[2017-10-13] MEDS ORDERED: OSEL75 PO (03:19)
[2017-10-13 04:25] LABS: AMORPHOUS SEDIMENT, URINE MANY; BILIRUBIN, URINE NEG (NEG); BLOOD, URINE NEG (NEG); GLUCOSE,URINE NEG (NEG); KETONE, URINE NEG (NEG); NITRITE,URINE NEG (NEG); PH, URINE 7.5 (5.0-8.5); SQUAMOUS EPITHELIAL CELL URINE <1 /hpf (0-5); URINE COLOR YELLOW (YELLW/STRAW); URINE LEUKOCYTE ESTERASE NEG (NEG)
[2017-10-13 04:54] VITALS: BP 149/95; TEMP 98.4
--- NOTE | 2017-10-13 17:41 | EKG ---
Date Performed: 10/13/2017 Time Performed: 00:49:54 PTAGE: 42 years EKG: Sinus rhythm POSSIBLE RIGHT VENTRICULAR CONDUCTION DELAY BORDERLINE ECG PREVIOUS TRACING : 08/28/2017 22.46 Since previous tracing, no significant change noted DOCTOR: Harshal Frost Interpretating Date/Time 10/13/2017 17:39:51
[2017-10-14 11:02] LABS: HEPATITIS A AB IGM NEGATIVE (NEGATIVE); HEPATITIS B CORE AB IGM NEGATIVE (NEGATIVE); HEPATITIS B SURFACE ANTIGEN NEGATIVE (NEGATIVE); HEPATITIS C AB IgG NEGATIVE (NEGATIVE)
== END 2017-10-13 04:56 | disposition home or self-care (01) ==
LOC: NEPE 00:28
DX: J11.1 Influenza due to unidentified influenza virus with other respiratory manifestations (principal); F41.9 Anxiety disorder, unspecified; F32.9 Major depressive disorder, single episode, unspecified; F17.290 Nicotine dependence, other tobacco product, uncomplicated; Z87.442 Personal history of urinary calculi; Z79.82 Long term (current) use of aspirin; Z79.899 Other long term (current) drug therapy; Z88.0 Allergy status to penicillin
CPT/HCPCS: 80053; 80074; 81001; 85025; 85652; 87040; 87081; 87185; 87205; 87804; 87880; 93005; 96374; 99284; J1885; J7030

== ENCOUNTER 2017-11-10 14:59 | Emergency (ER) | payer OTHER ==
[~2017-11-10] VITALS: Ht 190.5 cm; Wt 68.0 kg
[~2017-11-10 14:59] MED LIST changes: +OSEL75 PO
[2017-11-10 15:02] VITALS: BP 169/93; PULSE 91; RESP 16; TEMP 98.5; O2SAT 99
[2017-11-10] MEDS ORDERED: BACTROBAN OINTMENT TOPICAL (15:50)
[2017-11-10] MEDS ORDERED: BACT800T5 PO (15:50)
--- NOTE | 2017-11-10 15:50 | PD ---
HPI Chief Complaint: Musculoskeletal Complaint Time Seen by Provider: 15:22 Travel History International Travel<30 days: No Contact w/Intl Traveler<30days: No Traveled to known affect area: No History of Present Illness HPI 42-year-old male complains of infected lesions on the hands and forearms. Patient states that he has been exposed to tiny pieces of metal and plastic at work and started having rash on the hands and forearms and face and neck. Patient states that he has some redness associate with the rash on both hands recently. Patient states that he has some swelling of both hands. Patient denies any chest pain or shortness of breath. Patient denies abdominal pain. Patient denies any fever chills. Patient states that he is up-to-date with TD booster. PFSH Past Medical History Arthritis: No Anxiety: Yes Depression: Yes Cancer: No Cardiovascular Problems: No Diabetes: No Diminished Hearing: No Diverticulitis: Yes Endocrine: No Gastrointestinal Disorders: Yes (COLITIS) GERD: No Genitourinary: Yes (PAINFUL URINATION WITH BLOOD UPON STARTING) Hepatitis: No Hiatal Hernia: No Immune Disorder: No Kidney Stones: Yes Musculoskeletal: Yes (BACK PROBS,KNEE PROBS- HX OF RIGHT FEMUR FRACTURE) Neurologic: Yes (NECK PAIN) Psychiatric: No Reproductive: No Respiratory: No Immunizations Current: No Thyroid Disease: No Ulcer: No Influenza Vaccination: No Past Surgical History Abdominal Surgery: No Body Medical Devices: HARDWARE IN NECK Cardiac Surgery: No Ear Surgery: No Endocrine Surgery: No Eye Surgery: No Genitourinary Surgery: Yes (STENT in right kidney) Gynecologic Surgery: No Joint Replacement: No Neurologic Surgery: Yes (C7 SURGERY) Oral Surgery: No Pacemaker: No Thoracic Surgery: No Other Surgery: Yes Social History Alcohol Use: No Tobacco Use: Yes (E CIGS) Substance Use: No Allergies-Medications (Allergen,Severity, Reaction): Coded Allergies: penicillin G (Verified Allergy, Severe, hives, throat swelling, 11/10/17) Reported Meds & Prescriptions Reported Meds & Active Scripts Active [Bactroban Ointment] 1 Applic TOPICAL DAILY Bactrim DS (Sulfamethoxazole-Trimethoprim) 800-160 Mg Tab 1 Tab PO BID Reported Aspirin 325 Mg Tab 325 Mg PO BID Acetaminophen Pm Caplet (Acetaminophen/Diphenhydramine) 500 Mg-25 Mg Tablet 1 Tab PO HS Review of Systems General / Constitutional: No: Fever Eyes: No: Visual changes HENT: No: Headaches Cardiovascular: No: Chest Pain or Discomfort Respiratory: No: Shortness of Breath Gastrointestinal: No: Abdominal Pain Genitourinary: No: Dysuria Musculoskeletal: No: Pain Skin: No Rash Neurologic: No: Weakness Psychiatric: No: Depression Endocrine: No: Polydipsia Hematologic/Lymphatic: No: Easy Bruising Physical Exam Narrative GENERAL: Well-nourished, well-developed patient. SKIN: Focused skin assessment warm/dry. HEAD: Normocephalic. EYES: No scleral icterus. No injection or drainage. NECK: Supple, trachea midline. No JVD or lymphadenopathy. CARDIOVASCULAR: Regular rate and rhythm without murmurs, gallops, or rubs. RESPIRATORY: Breath sounds equal bilaterally. No accessory muscle use. GASTROINTESTINAL: Abdomen soft, non-tender, nondistended. MUSCULOSKELETAL: No cyanosis, or edema. BACK: Nontender without obvious deformity. No CVA tenderness. Patient has infected lesions on the left fourth finger palmar aspect and right fourth finger on the dorsal aspect of the PIP joint. Full range of motion all the fingers. Multiple skin lesions on the forearms, face. No discharge noted. Data Data Last Documented VS Vital Signs Date Time Temp Pulse Resp B/P (MAP) Pulse Ox O2 Delivery O2 Flow Rate FiO2 11/10/17 15:02 98.5 91 16 169/93 (118) 99 Orders Orders Ed Discharge Order (11/10/17 15:50) [facility] Medical Decision Making Medical Screen Exam Complete: Yes Emergency Medical Condition: Yes Differential Diagnosis Differential diagnosis including folliculitis, cellulitis, abscess. Narrative Course 42-year-old male complains of infected lesions on the upper extremity. Diagnosis Primary Impression: Folliculitis Patient Instructions: General Instructions Additional Instructions: Soap and water wash daily. Bactroban ointment as directed. Bactrim DS as directed. Follow-up with personal physician. Return if worse. Med/Other Pt SpecificInfo: Prescription(s) given Scripts [Bactroban Ointment] No Conflict Check 1 APPLIC TOPICAL DAILY, #1 Prov: Loco Capone MD 11/10/17 Sulfamethoxazole-Trimethoprim (Bactrim DS) 800-160 Mg Tab 1 TAB PO BID for Infection, #14 TAB 0 Refills Prov: Loco Capone MD 11/10/17 Disposition: 01 DISCHARGE HOME Condition: Stable Loco Capone MD Nov 10, 2017 15:50
== END 2017-11-10 16:15 | disposition home or self-care (01) ==
LOC: PHED 14:59
DX: L73.9 Follicular disorder, unspecified (principal); F41.8 Other specified anxiety disorders; Z88.0 Allergy status to penicillin
CPT/HCPCS: 99283

== ENCOUNTER 2018-02-05 15:23 | Emergency (ER) | payer OTHER ==
[~2018-02-05] VITALS: Ht 188.6 cm; Wt 67.6 kg
[~2018-02-05 15:23] MED LIST changes: +BACT800T5 PO; +BACTROBAN OINTMENT TOPICAL; -OSEL75 PO
[2018-02-05 15:36] VITALS: BP 147/87; PULSE 99; RESP 16; TEMP 98.5; O2SAT 98
[2018-02-05] MEDS ORDERED: LIDOCAINE HCL 1% 20 ML VIAL INFIL ONE (16:00)
--- NOTE | 2018-02-05 16:22 | RADRPT ---
EXAM DATE/TIME: 02/05/2018 16:07 [facility] COMPARISON: No previous studies available for comparison. INDICATIONS : Evaluate for foreign body. 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 MEDICAL HISTORY : Previous right Boxer's fracture SURGICAL HISTORY : None. ENCOUNTER: Initial ACUITY: 3 days PAIN SCORE: 6/10 LOCATION: Right medial side of 4th DIP joint FINDINGS: Examination of the fourth digit of the right hand demonstrates no evidence of fracture or dislocation . No radiopaque foreign bodies are seen. The soft tissues are intact. CONCLUSION: Negative exam. No fracture. No radiopaque foreign body. Mike Tovar MD on February 05, 2018 at 16:20 Board Certified Radiologist. This report was verified electronically.
[2018-02-05] MEDS ORDERED: BACT800T5 PO (17:05)
[2018-02-05] MEDS ORDERED: TRAM50 PO (17:05)
--- NOTE | 2018-02-05 17:06 | PD ---
HPI . Right fourth finger and right great toe pain and swelling Chief Complaint: Skin Problem Time Seen by Provider: 15:52 Travel History International Travel<30 days: No Contact w/Intl Traveler<30days: No Traveled to known affect area: No History of Present Illness HPI This patient presents with 2 chief complaints. He reports the onset of pain and swelling of his right fourth finger about 2 days ago. 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 He presumed that he had a piece of metal in his right fourth finger. His attempted to remove it with a needle. The next day, the area was red, hot, swollen and tender. It is worse today causing him to present to us for treatment. Pain is rated 8/10 and is exacerbated by palpation. His second complaint is an apparent foreign body in his right great toe. Onset was about a week ago. It is also getting progressively worse. PFSH Past Medical History Arthritis: No Anxiety: Yes Depression: Yes Cancer: No Cardiovascular Problems: No Diabetes: No Diminished Hearing: No Diverticulitis: Yes Endocrine: No Gastrointestinal Disorders: Yes (COLITIS) GERD: No Genitourinary: Yes Hepatitis: No Hiatal Hernia: No Immune Disorder: No Kidney Stones: Yes Musculoskeletal: Yes (BACK PROBS,KNEE PROBS- HX OF RIGHT FEMUR FRACTURE) Neurologic: Yes (NECK PAIN) Psychiatric: No Reproductive: No Respiratory: No Immunizations Current: No Thyroid Disease: No Ulcer: No Tetanus Vaccination: < 5 Years Influenza Vaccination: No Past Surgical History Abdominal Surgery: No Body Medical Devices: HARDWARE IN NECK Cardiac Surgery: No Ear Surgery: No Endocrine Surgery: No Eye Surgery: No Genitourinary Surgery: Yes (STENT in right kidney) Gynecologic Surgery: No Joint Replacement: No Neurologic Surgery: Yes (C7 SURGERY) Oral Surgery: No Pacemaker: No Thoracic Surgery: No Other Surgery: Yes Social History Alcohol Use: No Tobacco Use: Yes (E CIGS) Substance Use: No Allergies-Medications (Allergen,Severity, Reaction): Coded Allergies: penicillin G (Verified Allergy, Severe, hives, throat swelling, 02/05/18) Reported Meds & Prescriptions Reported Meds & Active Scripts Active No Active Prescriptions or Reported Medications Review of Systems Except as stated in HPI: all other systems reviewed are Neg Physical Exam Narrative GENERAL: Awake and alert and in no acute distress. SKIN: Warm and dry. Redness, warmth, swelling and tenderness on the ulnar aspect of the right fourth finger. No fluctuance. Redness, warmth, swelling and tenderness on the medial right great toe. HEAD: Normocephalic/atraumatic. EYES: Pupils are equal. Extraocular movements are intact. NECK: Normal range of motion. CARDIOVASCULAR: Regular rate and rhythm. RESPIRATORY: Nonlabored respirations. MUSCULOSKELETAL: Atraumatic. NEUROLOGICAL: Nonfocal. PSYCHIATRIC: Appropriate mood and affect. Data Data Last Documented VS Vital Signs Date Time Temp Pulse Resp B/P (MAP) Pulse Ox O2 Delivery O2 Flow Rate FiO2 02/05/18 15:36 98.5 99 16 147/87 (107) 98 Orders Orders Finger ([id number]) (02/05/18 16:00) Lidocaine 1% Inj (Xylocaine 1% Inj) (02/05/18 16:00) MDM Medical Decision Making Medical Screen Exam Complete: Yes Emergency Medical Condition: Yes Differential Diagnosis My differential diagnosis includes but is not limited to localized wound infection, cellulitis, abscess Narrative Course This patient presents with 2 complaints. The first is concern for a foreign body in his right fourth finger. He thinks that there is a piece of metal stuck in it. His second complaint is a foreign body sensation in his right great toe. An x-ray of his fourth finger was obtained to rule out foreign body. It was negative. The x-ray was independently reviewed by me. Examination of his great toe is compatible with an ingrown toenail. Procedures Procedure Narrative DIGITAL BLOCK: Following verbal consent, identification of the correct patient and identification of correct site, the skin was prepped with alcohol. A digital block was done using a total of 10 cc of 1% plain lidocaine. The patient tolerated procedure well without complication. Adequate anesthesia was obtained. Both the right fourth finger and right great toe were blocked. INCISION AND DRAINAGE OF ABSCESS right fourth finger: A number 11 scalpel was used to make a 0.5-cm incision across the area of possible foreign body. There was no pus. There was no obvious foreign body. INGROWN TOENAIL REMOVAL: Following adequate anesthesia, the ingrown portion of the toenail was exposed using a needle armored car driver. The ingrown nail was then trimmed using scissors. The patient tolerated procedure well without complication. Diagnosis Primary Impression: Cellulitis Qualified Codes: L03.113 - Cellulitis of right upper limb Additional Impression: Ingrown toenail Patient Instructions: Cellulitis (DC), General Instructions, Ingrown Nail (DC) Additional Instructions: So both here finger and your toe in warm Epsom salts several times a day. Follow-up if not markedly improved in 2 days. Med/Other Pt SpecificInfo: Prescription(s) given Scripts Tramadol (Ultram) 50 Mg Tab 50 MG PO Q4H Y for PAIN, #12 TAB 0 Refills Prov: Arlin Hanye MD 02/05/18 Sulfamethoxazole-Trimethoprim (Bactrim DS) 800-160 Mg Tab 1 TAB PO BID for Infection, #14 TAB 0 Refills Prov: Arlin Haney MD 02/05/18 Disposition: 01 DISCHARGE HOME Condition: Stable Arlin Haeny MD February 05, 2018 17:06
== END 2018-02-05 17:31 | disposition home or self-care (01) ==
LOC: PHED 15:23
DX: L02.511 Cutaneous abscess of right hand (principal); L60.0 Ingrowing nail; F41.9 Anxiety disorder, unspecified; F32.9 Major depressive disorder, single episode, unspecified; F17.290 Nicotine dependence, other tobacco product, uncomplicated; Z88.0 Allergy status to penicillin; Z87.442 Personal history of urinary calculi
CPT/HCPCS: 10060; 11765; 73140

== ENCOUNTER 2018-02-12 12:26 | Emergency (ER) | payer OTHER ==
[~2018-02-12] VITALS: Ht 190.5 cm; Wt 66.0 kg
[~2018-02-12 12:26] MED LIST changes: -ASPI-183 PO; -BACTROBAN OINTMENT TOPICAL; -DIPH25TA31 PO; +TRAM50 PO
[2018-02-12 12:42] VITALS: BP 163/98; PULSE 98; RESP 16; TEMP 98; O2SAT 100
[2018-02-12] MEDS ORDERED: TYLENOL PM PO (13:31)
--- NOTE | 2018-02-12 13:39 | PD ---
HPI Chief Complaint: General Weakness Time Seen by Provider: 13:30 Travel History International Travel<30 days: No Contact w/Intl Traveler<30days: No Traveled to known affect area: No History of Present Illness HPI This 42-year-old male is complaining of generalized weakness. This is going on for several days. He was a patient here on February 05. At that time a abscess was drained on his finger and an ingrown toenail was removed. He was started on Bactrim 11. He has not been taking any other medication. 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 He has not had fever or chills. He took his Bactrim earlier today. Says he has no energy PFSH Past Medical History Arthritis: No Anxiety: Yes Depression: Yes Cancer: No Cardiovascular Problems: No Diabetes: No Diminished Hearing: No Diverticulitis: Yes Endocrine: No Gastrointestinal Disorders: Yes (COLITIS) GERD: No Genitourinary: Yes Hepatitis: No Hiatal Hernia: No Immune Disorder: No Kidney Stones: Yes Medical other: Yes (RIGHT RENAL STENT) Musculoskeletal: Yes (BACK PROBS,KNEE PROBS- HX OF RIGHT FEMUR FRACTURE) Neurologic: Yes (NECK PAIN) Psychiatric: No Reproductive: No Respiratory: No Immunizations Current: No Thyroid Disease: No Ulcer: No Influenza Vaccination: No Past Surgical History Abdominal Surgery: No Body Medical Devices: HARDWARE IN NECK Cardiac Surgery: No Ear Surgery: No Endocrine Surgery: No Eye Surgery: No Genitourinary Surgery: Yes (STENT in right kidney) Gynecologic Surgery: No Joint Replacement: No Neurologic Surgery: Yes (C7 SURGERY) Oral Surgery: No Pacemaker: No Thoracic Surgery: No Other Surgery: Yes Social History Alcohol Use: No Tobacco Use: Yes (E CIGS) Substance Use: No Allergies-Medications (Allergen,Severity, Reaction): Coded Allergies: penicillin G (Verified Allergy, Severe, hives, throat swelling, 02/12/18) Reported Meds & Prescriptions Reported Meds & Active Scripts Active Reported [Tylenol Pm] Unknown Dose PO Review of Systems General / Constitutional: No: Fever, Chills Eyes: No: Diploplia, Blurred Vision HENT: No: Headaches, Vertigo Cardiovascular: No: Chest Pain or Discomfort, Palpitations Respiratory: No: Cough, Shortness of Breath Gastrointestinal: No: Nausea, Vomiting Genitourinary: No: Urgency, Frequency Musculoskeletal: No: Myalgias Skin: Positive Rash Neurologic: Positive: Weakness, No: Dizziness, Syncope Hematologic/Lymphatic: No: Easy Bruising Physical Exam Narrative GENERAL well-developed male SKIN: Focused skin assessment warm/dry. He has scattered small pustular lesions. The lesion on his finger that was I&D down the great toe are healing well without evidence of infection HEAD: Atraumatic. Normocephalic. EYES: Pupils equal and round. No scleral icterus. No injection or drainage. ENT: No nasal bleeding or discharge. Mucous membranes pink and moist. NECK: Trachea midline. No JVD. CARDIOVASCULAR: Regular rate and rhythm. No murmur appreciated. RESPIRATORY: No accessory muscle use. Clear to auscultation. Breath sounds equal bilaterally. GASTROINTESTINAL: Abdomen soft, non-tender, nondistended. Hepatic and splenic margins not palpable. MUSCULOSKELETAL: No obvious deformities. No clubbing. No cyanosis. No edema. NEUROLOGICAL: Awake and alert. No obvious cranial nerve deficits. Motor grossly within normal limits. Normal speech. PSYCHIATRIC: Appropriate mood and affect; insight and judgment normal. Data Data Last Documented VS Vital Signs Date Time Temp Pulse Resp B/P (MAP) Pulse Ox O2 Delivery O2 Flow Rate FiO2 02/12/18 12:42 98.0 98 16 163/98 (119) 100 Orders Orders Complete Blood Count With Diff (02/12/18 13:36) Comprehensive Metabolic Panel (02/12/18 13:36) Magnesium (Mg) (02/12/18 13:36) Labs Laboratory Tests Test 02/12/18 13:50 White Blood Count 7.4 TH/MM3 Red Blood Count 5.07 MIL/MM3 Hemoglobin 15.8 GM/DL Hematocrit 46.5 % Mean Corpuscular Volume 91.7 FL Mean Corpuscular Hemoglobin 31.1 PG Mean Corpuscular Hemoglobin Concent 33.9 % Red Cell Distribution Width 12.3 % Platelet Count 273 TH/MM3 Mean Platelet Volume 7.8 FL Neutrophils (%) (Auto) 85.5 % Lymphocytes (%) (Auto) 11.3 % Monocytes (%) (Auto) 2.8 % Eosinophils (%) (Auto) 0.2 % Basophils (%) (Auto) 0.2 % Neutrophils # (Auto) 6.4 TH/MM3 Lymphocytes # (Auto) 0.8 TH/MM3 Monocytes # (Auto) 0.2 TH/MM3 Eosinophils # (Auto) 0.0 TH/MM3 Basophils # (Auto) 0.0 TH/MM3 CBC Comment DIFF FINAL Differential Comment Blood Urea Nitrogen 16 MG/DL Creatinine 0.71 MG/DL Random Glucose 103 MG/DL Total Protein 7.6 GM/DL Albumin 4.5 GM/DL Calcium Level 9.7 MG/DL Magnesium Level 2.0 MG/DL Alkaline Phosphatase 74 U/L Aspartate Amino Transf (AST/SGOT) 32 U/L Alanine Aminotransferase (ALT/SGPT) 50 U/L Total Bilirubin 0.3 MG/DL Sodium Level 138 MEQ/L Potassium Level 3.9 MEQ/L Chloride Level 104 MEQ/L Carbon Dioxide Level 27.4 MEQ/L Anion Gap 7 MEQ/L Estimat Glomerular Filtration Rate 123 ML/MIN [facility] Medical Decision Making Medical Screen Exam Complete: Yes Emergency Medical Condition: Yes Medical Record Reviewed: Yes Differential Diagnosis Differential includes electrolyte imbalance, anemia, adverse medication reaction Narrative Course CBC and 7 were checked and are normal. This may be related to adverse reaction to Bactrim. He is stable for discharge he has finished his prescription and is not due to take anymore anyway Diagnosis Primary Impression: Adverse drug reaction Departure Forms: Tests/Procedures, Work Release Enter return to work date: February 14, 2018 Disposition: 01 DISCHARGE HOME Condition: Stable Fritz Alcaraz MD February 12, 2018 13:39
[2018-02-12 14:07] LABS: AUTOMATED NEUTROPHIL # 6.4 TH/MM3 (1.8-7.7); BASOPHIL % 0.2 % (0.0-2.0); EOSINOPHIL % 0.2 % (0.0-4.0); HEMATOCRIT 46.5 % (39.0-51.0); HEMOGLOBIN 15.8 GM/DL (13.0-17.0); LYMPH % 11.3 % (9.0-44.0); LYMPHOCYTE # 0.8 TH/MM3 (1.0-4.8); MEAN CELL VOLUME 91.7 FL (80.0-100.0); MEAN CORPUSCULAR HEMOGLOBIN 31.1 PG (27.0-34.0); MEAN CORPUSCULAR HGB CONC 33.9 % (32.0-36.0); MEAN PLATELET VOLUME 7.8 FL (7.0-11.0); MONO % 2.8 % (0.0-8.0); MONOCYTE # 0.2 TH/MM3 (0-0.9); NEUT % 85.5 % (16.0-70.0); PLATELET COUNT 273 TH/MM3 (150-450); RED BLOOD COUNT 5.07 MIL/MM3 (4.50-5.90); RED CELL DISTRIBUTION WIDTH 12.3 % (11.6-17.2); WHITE BLOOD COUNT 7.4 TH/MM3 (4.0-11.0)
[2018-02-12 14:16] LABS: CHLORIDE 104 MEQ/L (98-107); SODIUM (NA) 138 MEQ/L (136-145)
[2018-02-12 14:19] LABS: CALCIUM 9.7 MG/DL (8.5-10.1)
[2018-02-12 14:20] LABS: ALBUMIN 4.5 GM/DL (3.4-5.0); BICARBONATE 27.4 MEQ/L (21.0-32.0); BLOOD UREA NITROGEN 16 MG/DL (7-18); GLUCOSE,RANDOM 103 MG/DL (74-106)
[2018-02-12 14:23] LABS: ALT (GPT) 50 U/L (12-78); AST (GOT) 32 U/L (15-37); CREATININE 0.71 MG/DL (0.60-1.30); GLOMERULAR FILTRATION RATE 123 ML/MIN (>89)
[2018-02-12 14:25] LABS: TOTAL BILIRUBIN ADULT 0.3 MG/DL (0.2-1.0); TOTAL PROTEIN 7.6 GM/DL (6.4-8.2)
[2018-02-12 14:26] LABS: ALKALINE PHOSPHATASE 74 U/L (45-117)
[2018-02-12 14:40] VITALS: BP 126/79; PULSE 78; RESP 16; O2SAT 99
== END 2018-02-12 14:50 | disposition home or self-care (01) ==
LOC: PHED 12:26
DX: T37.0X5A Adverse effect of sulfonamides, initial encounter (principal); R53.1 Weakness; F41.9 Anxiety disorder, unspecified; F32.9 Major depressive disorder, single episode, unspecified; Z87.19 Personal history of other diseases of the digestive system; Z87.442 Personal history of urinary calculi; Z88.0 Allergy status to penicillin
CPT/HCPCS: 80053; 83735; 85025; 99283